=== PATIENT | male | born 1960 | race African-American/Black ===

== ENCOUNTER 2016-08-06 11:20 | Inpatient (IN) | payer OTHER ==
[2016-08-06 11:48] VITALS: BMI 24.3
--- NOTE | 2016-08-06 14:14 | HP ---
CIWA Score - CIWA Score Nausea/Vomitin Muscle Tremors: 3 Anxiety: 4-Mod. Anxious/Guarded Agitation: 3 Paroxysmal Sweats: 3 Orientation: 0-Oriented Tacttile Disturbances: 2-Mild Itch/Numbness/Burn Auditory Disturbances: 2-Mild Harshness/Frighten Visual Disturbances: 3-Moderate Sensitivity Headache: 2-Mild CIWA-Ar Total Score: 25 Admission ROS BHS - HPI Chief Complaint: "I started drinking and can't stop.' Pt. is here to Detox from alcohol. Allergies/Adverse Reactions: Allergies Allergy/AdvReac Type Severity Reaction Status Date / Time No Known Allergies Allergy Verified 08/06/16 14:05 History of Present Illness: Pt. is a 55 YO male here to Detox from alcohol. Pt. has had a previous detox admission at [facility] many years ago. Exam Limitations: No Limitations - Ebola screening Have you traveled outside of the country in the last 21 days: No Have you had contact with anyone from an Ebola affected area: No Have you been sick,other than usual withdrawal symptoms: No Do you have a fever: No - Review of Systems Constitutional: Chills, Diaphoresis, Fever, Loss of Appetite, Malaise, Night Sweats, Changes in sleep EENT: reports: Blurred Vision, Eye Pain (History of Glaucoma.), Tearing, Nose Congestion Respiratory: reports: SOB with Exertion (Occasional.), Productive cough ( Occasional.) Cardiac: reports: Palpitations GI: reports: Diarrhea, Nausea, Poor Appetite, Indigestion, Abdominal cramping : reports: No Symptoms Reported Musculoskeletal: reports: Back Pain, Joint Pain, Joint Stiffness Integumentary: reports: No Symptoms Reported Neuro: reports: Headache, Numbness (Big Toes of bilateral Feet (uncertain as to reason why). Fingertips of Right Hand (due to elbow injury).), Tingling (Big Toes of bilateral Feet (uncertain as to reason why). Fingertips of Right Hand ( due to elbow injury).), Tremors, Ataxia (Occasional, None current.) Endocrine: reports: No Symptoms Reported Hematology: reports: No Symptoms Reported Psychiatric: reports: Judgement Intact, Mood/Affect Appropiate, Orientated x3, Anxious, Depressed (On meds.) Other Systems: Reviewed and Negative Patient History - Patient Medical History Hx Anemia: No Hx Asthma: Yes (Has not been symptomatic for approx. 2 years. Previously used Albuterol Inh) Hx Chronic Obstructive Pulmonary Disease (COPD): No Hx Cancer: No Hx Cardiac Disorders: No (Murmur.) Hx Congestive Heart Failure: No Hx Hypertension: No Hx Hypercholesterolemia: No Hx Pacemaker: No HX Cerebrovascular Accident: No Hx Seizures: No Hx Dementia: No Hx Diabetes: No Hx Gastrointestinal Disorders: No (GERD, IBS.) Hx Liver Disease: No Hx Genitourinary Disorders: No Hx Sexually Transmitted Disorders: No Hx Renal Disease (ESRD): No Hx Thyroid Disease: No Hx Human Immunodeficiency Virus (HIV): No (Last Tested: 11/2015: NEGATIVE.) Hx Hepatitis C: No (Last Tested: 11/2015: NEGATIVE.) Hx Depression: Yes (On meds.) Hx Suicide Attempt: Yes (PATIENT DENIES CURRENT SI / HI.) Hx Bipolar Disorder: Yes (On meds.) Hx Schizophrenia: No - Patient Surgical History Past Surgical History: No Hx Neurologic Surgery: No Hx Cataract Extraction: No Hx Cardiac Surgery: No Hx Lung Surgery: No Hx Breast Surgery: Yes (Benign Tumor removal, age 12.) Hx Breast Biopsy: No Hx Abdominal Surgery: Yes (Inguinal Hernai repair, age 6.) Hx Appendectomy: No Hx Cholecystectomy: No Hx Genitourinary Surgery: No Hx Orthopedic Surgery: Yes (Ulnar Decompression: 2016) Anesthesia Reaction: No - PPD History Previous Implant?: Yes Documented Results: Negative w/o proof Implanted On Prior [facility] Admission?: No PPD to be Administered?: Yes - Reproductive History Patient is a Female of Child Bearing Age (11 -55 yrs old): No (PATIENT IS MALE.) - Smoking Cessation Smoking history: Current every day smoker Aproximately how many cigarettes per day: 5 Cigars Per Day: 0 Hx Chewing Tobacco Use: No Initiated information on smoking cessation: Yes 'Breaking Loose' booklet given: 08/06/16 (GIVEN ON UNIT.) - Substance & Tx. History Hx Alcohol Use: Yes Hx Substance Use: Yes Substance Use Type: Alcohol, Cocaine Hx Substance Use Treatment: Yes (Previous Detox admission at [facility], many years ago.) - Substances Abused Alcohol Route: Oral Frequency: Daily Amount used: fortunato(1/2 pint) Age of first use: 8 Date of Last Use: 08/05/16 Cocaine Route: Smoking Frequency: Daily Amount used: $300-400 Age of first use: 25 Date of Last Use: 08/05/16 Family Disease History - Family Disease History Family Disease History: Diabetes: Father (Alcohol, .), Brother ( Substance Abuse, .), Heart Disease: Daughter (Murmur.), Other: Grandparent (Alcohol.), Father, Mother (Alcohol, Kidney disorder.), Sister ( Thyroid disorder.) Admission Physical Exam [facility] - Vital Signs Vital Signs: Vital Signs - 24 hr 08/06/16 11:46 Temperature 97.3 F L Pulse Rate 73 Respiratory 20 Rate Blood Pressure 100/68 - Physical General Appearance: Yes: No Apparent Distress, Tremorous, Anxious HEENTM: Yes: Hearing grossly Normal, Normocephalic, Normal Voice, FRANNY, Pharynx Normal Respiratory: Yes: Chest Non-Tender, Lungs Clear, No Respiratory Distress Neck: Yes: No masses,lesions,Nodules, Supple, Trachea in good position Breast: Yes: Breast Exam Deferred Cardiology: Yes: Regular Rhythm, Regular Rate, S1, S2, Murmur Abdominal: Yes: Normal Bowel Sounds, Flat, Soft Genitourinary: Yes: Within Normal Limits Back: Yes: Decreased Range of Motion Musculoskeletal: Yes: Gait Steady, Back pain, Joint Stiffness Extremities: Yes: Tremors Neurological: Yes: Fully Oriented, Alert, Normal Mood/Affect, Normal Response Integumentary: Yes: Normal Color, Dry, Warm Lymphatic: Yes: Within Normal Limits - Diagnostic (1) Alcohol dependence with uncomplicated withdrawal Current Visit: Yes Status: Acute (2) Cocaine dependence, uncomplicated Current Visit: Yes Status: Acute (3) Nicotine dependence Current Visit: Yes Status: Chronic Qualifiers: Nicotine product type: cigarettes Substance use status: uncomplicated Qualified Code(s): F17.210 - Nicotine dependence, cigarettes, uncomplicated (4) Glaucoma Current Visit: Yes Status: Chronic Qualifiers: Glaucoma type: unspecified type Laterality: bilateral Qualified Code(s): H40.9 - Unspecified glaucoma (5) GERD (gastroesophageal reflux disease) Current Visit: Yes Status: Chronic Qualifiers: Esophagitis presence: without esophagitis Qualified Code(s): K21.9 - Gastro-esophageal reflux disease without esophagitis (6) IBS (irritable bowel syndrome) Current Visit: Yes Status: Chronic Qualifiers: Irritable bowel syndrome type: unspecified Qualified Code(s): K58.9 - Irritable bowel syndrome without diarrhea Cleared for Admission [facility] - Detox or Rehab [facility] Level of Care: Medically Managed (ADVISED PATIENT TO FOLLOW-UP WITH ACID WASHER OPERATOR / REHAB MEDICAL PROVIDER AFTER DISCHARGE FROM DETOX FOR GENERAL MEDICAL ASSESSMENT.) Detox Regimen/Protocol: Librium S Breath Alcohol Content Breath Alcohol Content: 0 Urine Drug Screen - Results Drug Screen Negative: No Urine Drug Screen Results: DOLORES-Cocaine
[2016-08-06] MEDS ORDERED: guaiFENesin/D-METHORPHAN HB 10 ML UNIT-DOSE CUPS PO PRN (14:58)
[2016-08-06] MEDS ORDERED: MAGNESIUM CITRATE 300 ML BOTTLE PO PRN (14:58)
[2016-08-06] MEDS ORDERED: chlordiazePOXIDE HCL 25 MG CAPSULE PO PRN (14:58)
[2016-08-06] MEDS ORDERED: chlordiazePOXIDE HCL 25 MG CAPSULE PO ONE (14:58)
[2016-08-06] MEDS ORDERED: MENTHOL/PHENOL 1 EACH UD MM PRN (14:58)
[2016-08-06] MEDS ORDERED: MAG HYDROX/AL HYDROX/SIMETH 30 ML UNIT-DOSE CUP PO PRN (14:58)
[2016-08-06] MEDS ORDERED: MAGNESIUM HYDROX 2400MG/30ML ORAL SUSPENSION 30 ML CUP PO PRN (14:58)
[2016-08-06] MEDS ORDERED: LOPERAMIDE HCL 2 MG CAPSULE PO PRN (14:58)
[2016-08-06] MEDS ORDERED: ACETAMINOPHEN 325 MG TABLET (FP) PO PRN (14:58)
[2016-08-06] MEDS ORDERED: NICOTINE POLACRILEX 2 MG GUM BC PRN (14:58)
[2016-08-06] MEDS ORDERED: hydrOXYzine PAMOATE 50 MG CAPSULE (FP) PO PRN (14:58)
[2016-08-06] MEDS ORDERED: P-EPHED 60MG/TRIPROLIDI 2.5MG TABLET PO PRN (14:58)
[2016-08-06] MEDS ORDERED: ALBUTEROL SO4 6.7 GM HFA INHALER IH PRN (15:07)
[2016-08-06] MEDS: NICOTINE 14 MG/24 HOURS TOPICAL PATCH TD SCH (15:54)
[2016-08-06] MEDS: chlordiazePOXIDE HCL 25 MG CAPSULE PO SCH ×2 (17:55→22:49)
[2016-08-06 19:25] LABS: URINE APPEARANCE CLEAR; URINE BILIRUBIN NEGATIVE (NEGATIVE); URINE BLOOD NEGATIVE (NEGATIVE); URINE COLOR YELLOW; URINE GLUCOSE (UA) NEGATIVE (NEGATIVE); URINE KETONE TRACE (NEGATIVE); URINE LEUK ESTERASE NEGATIVE (NEGATIVE); URINE NITRITE NEGATIVE (NEGATIVE); URINE PROTEIN NEGATIVE (NEGATIVE); URINE UROBILINOGEN NEGATIVE E.U./dl (0.2-1.0)
[2016-08-06] MEDS: THIAMINE HCL 100 MG TABLET (FP) PO SCH (22:49)
[2016-08-06] MEDS: BRIMONIDINE TARTRATE 0.2% OPHTHALMIC 5 ML BOTTLE OU SCH (22:50)
[2016-08-06] MEDS: LATANOPROST 0.005% OPHTH SOLN 2.5ML BOTTLE OU SCH (22:50)
[2016-08-06] MEDS: diphenhydrAMINE HCL 50 MG CAPSULE PO PRN (22:52)
[2016-08-06] MEDS: IBUPROFEN 400 MG TABLET (FP) PO PRN (22:52)
[2016-08-07] MEDS: chlordiazePOXIDE HCL 25 MG CAPSULE PO SCH ×4 (06:22→23:01)
[2016-08-07] MEDS ORDERED: TAMSULOSIN HCL 0.4 MG CAP.ER.24H (FP) PO SCH (08:30)
[2016-08-07 09:41] LABS: MCH 30.1 pg (25.7-33.7); MEAN CELL VOLUME 91.3 fl (80-96); PLATELET COUNT 129 K/MM3 (134-434); RDW 14.6 % (11.9-15.9); WHITE BLOOD COUNT 4.5 K/mm3 (4.0-10.0)
[2016-08-07 10:03] LABS: ALBUMIN 3.2 g/dl (3.4-5.0); ALK PHOS 60 U/L (45-117); ANION GAP 9 (8-16); BILIRUBIN,TOTAL 0.3 mg/dL (0.2-1.0); CALCIUM 8.3 mg/dL (8.5-10.1); CO2 27 mmol/L (21-32); CREATININE 0.9 mg/dL (0.7-1.3); GLUCOSE,RANDOM 101 mg/dL (74-106); SGOT/AST 13 U/L (15-37); SGPT/ALT 19 U/L (12-78); TOT PROT 6.2 g/dl (6.4-8.2)
[2016-08-07 10:11] LABS: HIV 1 & 2 AB NEGATIVE; HIV 1 AGp24 NEGATIVE
[2016-08-07] MEDS: PANTOPRAZOLE 40 MG TABLET (FP) PO SCH (11:15)
[2016-08-07] MEDS: PRENATAL VITAMINS W/ FOLIC ACID TABLET (FP) PO SCH (11:16)
[2016-08-07] MEDS: BRIMONIDINE TARTRATE 0.2% OPHTHALMIC 5 ML BOTTLE OU SCH (11:16)
[2016-08-07] MEDS: NICOTINE 14 MG/24 HOURS TOPICAL PATCH TD SCH (11:27)
--- NOTE | 2016-08-07 11:35 | PN ---
S CIWA - CIWA Score Nausea/Vomitin Muscle Tremors: 3 Anxiety: 4-Mod. Anxious/Guarded Agitation: 4-Moderately Restless Paroxysmal Sweats: 3 Orientation: 0-Oriented Tacttile Disturbances: 2-Mild Itch/Numbness/Burn Auditory Disturbances: 0-None Visual Disturbances: 2-Mild Sensitivity Headache: 1-Very Mild CIWA-Ar Total Score: 22 BHS Progress Note (SOAP) Subjective: sweats, shakes, achy, wants eye drops changed Objective: 08/07/16 11:31 Vital Signs Temperature 97.1 F L 08/07/16 11:18 Pulse Rate 63 08/07/16 11:18 Respiratory Rate 16 08/07/16 11:18 Blood Pressure 111/80 08/07/16 11:18 O2 Sat by Pulse Oximetry (%) Laboratory Tests 08/06/16 08/07/16 08/07/16 Unknown 07:00 07:00 WBC 4.5 RBC 4.31 Hgb 13.0 Hct 39.4 MCV 91.3 MCHC 33.0 RDW 14.6 Plt Count 129 L MPV 10.0 Sodium Potassium Chloride Carbon Dioxide Anion Gap BUN Creatinine Creat Clearance w eGFR Random Glucose Hemoglobin A1c % Calcium Total Bilirubin AST ALT Alkaline Phosphatase Total Protein Albumin Urine Color Yellow Urine Appearance Clear Urine pH 6.0 Ur Specific [place] 1.026 Urine Protein Negative Urine Glucose (UA) Negative Urine Ketones Trace H Urine Blood Negative Urine Nitrite Negative Urine Bilirubin Negative Urine Urobilinogen Negative Ur Leukocyte Esterase Negative RPR Titer HIV 1&2 Antibody Screen Negative HIV P24 Antigen Negative 08/07/16 08/07/16 08/07/16 07:00 07:00 07:00 WBC RBC Hgb Hct MCV MCHC RDW Plt Count MPV Sodium 139 Potassium 3.9 Chloride 103 Carbon Dioxide 27 Anion Gap 9 BUN 18 Creatinine 0.9 Creat Clearance w eGFR > 60 Random Glucose 101 Hemoglobin A1c % 6.0 Calcium 8.3 L Total Bilirubin 0.3 AST 13 L ALT 19 Alkaline Phosphatase 60 Total Protein 6.2 L Albumin 3.2 L Urine Color Urine Appearance Urine pH Ur Specific [place] Urine Protein Urine Glucose (UA) Urine Ketones Urine Blood Urine Nitrite Urine Bilirubin Urine Urobilinogen Ur Leukocyte Esterase RPR Titer Nonreactive HIV 1&2 Antibody Screen HIV P24 Antigen 08/07/16 11:46 pt irritable , ambulating , demanding eye drops Assessment: 08/07/16 11:46 withdrawal sx's glaucoma bph Plan: cont detox increase fluids alphagan eye drops bid prn flomax 0,4 at hs
[2016-08-07 12:41] LABS: SICKLE CELL SCREEN NEGATIVE (NEGATIVE)
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
[2016-08-07] MEDS ORDERED: DIVALPROEX SODIUM 250 MG TABLET E.C. (FP) PO SCH (22:00)
[2016-08-07] MEDS: THIAMINE HCL 100 MG TABLET (FP) PO SCH (23:01)
[2016-08-07] MEDS: TAMSULOSIN HCL 0.4 MG CAP.ER.24H (FP) PO SCH (23:01)
[2016-08-07] MEDS: DIVALPROEX SODIUM 500 MG TABLET E.C. PO SCH (23:01)
[2016-08-07] MEDS: QUEtiapine FUMARATE 100 MG TABLET (FP) PO SCH (23:01)
[2016-08-07] MEDS: BRIMONIDINE TARTRATE 0.2% OPHTHALMIC 5 ML BOTTLE OU PRN (23:02)
[2016-08-07] MEDS: LATANOPROST 0.005% OPHTH SOLN 2.5ML BOTTLE OU SCH (23:02)
[2016-08-07] MEDS: IBUPROFEN 400 MG TABLET (FP) PO PRN (23:03)
[2016-08-08] MEDS: chlordiazePOXIDE HCL 25 MG CAPSULE PO SCH ×2 (05:24→10:39)
[2016-08-08] MEDS: BRIMONIDINE TARTRATE 0.2% OPHTHALMIC 5 ML BOTTLE OU PRN (05:27)
[2016-08-08] MEDS: PANTOPRAZOLE 40 MG TABLET (FP) PO SCH (10:39)
[2016-08-08] MEDS: NICOTINE 14 MG/24 HOURS TOPICAL PATCH TD SCH (10:39)
[2016-08-08] MEDS: PRENATAL VITAMINS W/ FOLIC ACID TABLET (FP) PO SCH (10:39)
[2016-08-08] MEDS: DIVALPROEX SODIUM 500 MG TABLET E.C. PO SCH ×2 (10:39→22:06)
--- NOTE | 2016-08-08 11:30 | PN ---
S CIWA - CIWA Score Nausea/Vomitin-No Nausea/No Vomiting Muscle Tremors: 4-Moderate,w/Arms Extend Anxiety: 3 Agitation: 4-Moderately Restless Paroxysmal Sweats: 3 Orientation: 0-Oriented Tacttile Disturbances: 0-None Auditory Disturbances: 0-None Visual Disturbances: 0-None Headache: 1-Very Mild CIWA-Ar Total Score: 15 BHS Progress Note (SOAP) Subjective: irritable agitation anxiety interrupted sleep body aches Objective: 08/08/16 11:29 Vital Signs Temperature 97.2 F L 08/08/16 10:46 Pulse Rate 78 08/08/16 10:46 Respiratory Rate 18 08/08/16 10:46 Blood Pressure 101/71 08/08/16 10:46 O2 Sat by Pulse Oximetry (%) Laboratory Tests 08/06/16 08/06/16 08/07/16 07:00 Unknown 07:00 WBC RBC Hgb Hct MCV MCHC RDW Plt Count MPV Sickle Cell Screen Sodium Potassium Chloride Carbon Dioxide Anion Gap BUN Creatinine Creat Clearance w eGFR Random Glucose Hemoglobin A1c % Calcium Total Bilirubin AST ALT Alkaline Phosphatase Total Protein Albumin Urine Color Yellow Urine Appearance Clear Urine pH 6.0 Ur Specific [place] 1.026 Urine Protein Negative Urine Glucose (UA) Negative Urine Ketones Trace H Urine Blood Negative Urine Nitrite Negative Urine Bilirubin Negative Urine Urobilinogen Negative Ur Leukocyte Esterase Negative RPR Titer Hepatitis C Antibody 0.2 HIV 1&2 Antibody Screen Negative HIV P24 Antigen Negative 08/07/16 08/07/16 08/07/16 07:00 07:00 07:00 WBC 4.5 RBC 4.31 Hgb 13.0 Hct 39.4 MCV 91.3 MCHC 33.0 RDW 14.6 Plt Count 129 L MPV 10.0 Sickle Cell Screen Negative Sodium 139 Potassium 3.9 Chloride 103 Carbon Dioxide 27 Anion Gap 9 BUN 18 Creatinine 0.9 Creat Clearance w eGFR > 60 Random Glucose 101 Hemoglobin A1c % Calcium 8.3 L Total Bilirubin 0.3 AST 13 L ALT 19 Alkaline Phosphatase 60 Total Protein 6.2 L Albumin 3.2 L Urine Color Urine Appearance Urine pH Ur Specific [place] Urine Protein Urine Glucose (UA) Urine Ketones Urine Blood Urine Nitrite Urine Bilirubin Urine Urobilinogen Ur Leukocyte Esterase RPR Titer Nonreactive Hepatitis C Antibody HIV 1&2 Antibody Screen HIV P24 Antigen 08/07/16 07:00 WBC RBC Hgb Hct MCV MCHC RDW Plt Count MPV Sickle Cell Screen Sodium Potassium Chloride Carbon Dioxide Anion Gap BUN Creatinine Creat Clearance w eGFR Random Glucose Hemoglobin A1c % 6.0 Calcium Total Bilirubin AST ALT Alkaline Phosphatase Total Protein Albumin Urine Color Urine Appearance Urine pH Ur Specific [place] Urine Protein Urine Glucose (UA) Urine Ketones Urine Blood Urine Nitrite Urine Bilirubin Urine Urobilinogen Ur Leukocyte Esterase RPR Titer Hepatitis C Antibody HIV 1&2 Antibody Screen HIV P24 Antigen awake/alert ambulating no acute distress Assessment: 08/08/16 11:29 withdrawal sx Plan: continue detox increase fluids
[2016-08-08] MEDS: IBUPROFEN 400 MG TABLET (FP) PO PRN (13:22)
[2016-08-08] MEDS: chlordiazePOXIDE 5 MG CAPSULE PO SCH ×2 (17:13→22:06)
[2016-08-08] MEDS: TAMSULOSIN HCL 0.4 MG CAP.ER.24H (FP) PO SCH (22:06)
[2016-08-08] MEDS: THIAMINE HCL 100 MG TABLET (FP) PO SCH (22:06)
[2016-08-08] MEDS: QUEtiapine FUMARATE 100 MG TABLET (FP) PO SCH (22:06)
[2016-08-08] MEDS: diphenhydrAMINE HCL 50 MG CAPSULE PO PRN (22:07)
--- NOTE | 2016-08-08 22:52 | EKG ---
Test Reason : Blood Pressure : / mmHG Vent. Rate : 073 BPM Atrial Rate : 073 BPM P-R Int : 160 ms QRS Dur : 102 ms QT Int : 440 ms P-R-T Axes : 075 001 -22 degrees QTc Int : 484 ms NORMAL SINUS RHYTHM NONSPECIFIC T WAVE ABNORMALITY PROLONGED QT ABNORMAL ECG NO PREVIOUS ECGS AVAILABLE Confirmed by SEKOU GROVER, CLARITZA ([id number]) on 08/08/2016 10:51:41 PM Referred By: Confirmed By:CLARITZA SAPP MD
[2016-08-08] MEDS: LATANOPROST 0.005% OPHTH SOLN 2.5ML BOTTLE OU SCH (22:55)
[2016-08-09] MEDS: chlordiazePOXIDE 5 MG CAPSULE PO SCH (06:12)
[2016-08-09] MEDS: IBUPROFEN 400 MG TABLET (FP) PO PRN (06:16)
[2016-08-09] MEDS: BRIMONIDINE TARTRATE 0.2% OPHTHALMIC 5 ML BOTTLE OU PRN (06:24)
--- NOTE | 2016-08-09 09:40 | PN ---
[facility] Progress Note Note: pt became irrate yelling out loud disrespecting staff stating "I dont give a fuck about anything." security called to have pt escorted off the unit. administrative discharge
[2016-08-09 09:51] VITALS: BP 125/76; PULSE 92; TEMP 97.3
--- NOTE | 2016-08-09 09:56 | DS ---
[facility] Detox Discharge Summary Admission Date: 08/06/16 Discharge Date: 08/09/16 - History Present History: Alcohol Dependence, Cocaine Dependence - Physical Exam Results Vital Signs: Vital Signs Temperature 97.3 F L 08/09/16 09:50 Pulse Rate 92 H 08/09/16 09:50 Respiratory Rate 18 08/09/16 09:50 Blood Pressure 125/76 08/09/16 09:50 O2 Sat by Pulse Oximetry (%) - Treatment Hospital Course: Detox Protocol Followed, Detoxed Safely, Responded well, Discharged Condition Good, Rehab Referral Accepted - Medication Discharge Medications: Ambulatory Orders Brimonidine Tartrate [Alphagan 0.2% -] 1 drop OU BID 08/06/16 Divalproex [Depakote -] 1,000 mg PO BID 08/06/16 Latanoprost 0.005% Eye Drops [Xalatan 0.005% Eye Drops -] 1 drop OU HS 08/06/16 Multivitamins [Tab-A-Vit -] 1 tab PO DAILY 08/06/16 Quetiapine Fumarate [Seroquel] 100 mg PO HS 08/06/16 Tamsulosin HCl [Flomax] 0.4 mg PO DAILY 08/06/16 - Diagnosis (1) Alcohol dependence with uncomplicated withdrawal Current Visit: Yes Status: Chronic (2) Cocaine dependence, uncomplicated Current Visit: Yes Status: Chronic (3) Insomnia Current Visit: Yes Status: Acute (4) Nicotine dependence Current Visit: Yes Status: Chronic Qualifiers: Nicotine product type: cigarettes Substance use status: uncomplicated Qualified Code(s): F17.210 - Nicotine dependence, cigarettes, uncomplicated (5) Substance induced mood disorder Current Visit: Yes Status: Acute (6) GERD (gastroesophageal reflux disease) Current Visit: Yes Status: Chronic Qualifiers: Esophagitis presence: without esophagitis Qualified Code(s): K21.9 - Gastro-esophageal reflux disease without esophagitis (7) Glaucoma Current Visit: Yes Status: Chronic Qualifiers: Glaucoma type: unspecified type Laterality: bilateral Qualified Code(s): H40.9 - Unspecified glaucoma (8) IBS (irritable bowel syndrome) Current Visit: Yes Status: Chronic Qualifiers: Irritable bowel syndrome type: unspecified Qualified Code(s): K58.9 - Irritable bowel syndrome without diarrhea (9) Post traumatic stress disorder (PTSD) Current Visit: Yes Status: Chronic (10) Schizoaffective disorder Current Visit: Yes Status: Chronic - AMA Did Patient Leave Against Medical Advice: No
[2016-08-09] MEDS ORDERED: chlordiazePOXIDE HCL 10 MG CAPSULE PO SCH (17:00)
== END 2016-08-09 09:50 | disposition home or self-care (01) | DRG 897 ==
LOC: YASAS 11:20 → Y6N 12:35
PROVIDERS: ADMIT Internal Medicine; ATTEND Internal Medicine Addiction Medicine
PROC: HZ2ZZZZ Detoxification Services for Substance Abuse Treatment (ICD-10-PCS; principal; 2016-08-06)
DX: F10.230 Alcohol dependence with withdrawal, uncomplicated (principal); F14.20 Cocaine dependence, uncomplicated; F17.210 Nicotine dependence, cigarettes, uncomplicated; F19.24 Other psychoactive substance dependence with psychoactive substance-induced mood disorder; F43.10 Post-traumatic stress disorder, unspecified; F25.9 Schizoaffective disorder, unspecified; J45.909 Unspecified asthma, uncomplicated; G47.00 Insomnia, unspecified; K21.9 Gastro-esophageal reflux disease without esophagitis; H40.9 Unspecified glaucoma; K58.9 Irritable bowel syndrome, unspecified; N40.0 Benign prostatic hyperplasia without lower urinary tract symptoms; Z91.5 Personal history of self-harm
CPT/HCPCS: 36415; 80053; 80164; 81003; 83036; 85027; 85660; 86593; 87389; 93005; 93010

== ENCOUNTER 2016-11-17 10:06 | Inpatient (IN) | payer OTHER ==
[2016-11-17 12:09] VITALS: BMI 24.3
--- NOTE | 2016-11-17 12:46 | HP ---
CIWA Score - CIWA Score Nausea/Vomitin-Mild Nausea/No Vomiting Muscle Tremors: 4-Moderate,w/Arms Extend Anxiety: 3 Agitation: 4-Moderately Restless Paroxysmal Sweats: 3 Orientation: 0-Oriented Tacttile Disturbances: 0-None Auditory Disturbances: 0-None Visual Disturbances: 0-None Headache: 1-Very Mild CIWA-Ar Total Score: 16 Admission ROS BHS - HPI Chief Complaint: I am in a better place now and ready for detox and thinking about rehab for more treatment. Allergies/Adverse Reactions: Allergies Allergy/AdvReac Type Severity Reaction Status Date / Time No Known Allergies Allergy Verified 11/17/16 12:21 History of Present Illness: Pt is a 55yr old male with a history alcohol and crack/cocaine dependence seeking detox for treatment. Exam Limitations: No Limitations - Ebola screening Have you traveled outside of the country in the last 21 days: No Have you had contact with anyone from an Ebola affected area: No Have you been sick,other than usual withdrawal symptoms: No Do you have a fever: No - Review of Systems Constitutional: Chills, Loss of Appetite, Night Sweats, Changes in sleep EENT: reports: No Symptoms Reported, Tearing Respiratory: reports: No Symptoms reported, Cough Cardiac: reports: Lightheadedness GI: reports: Diarrhea, Nausea, Poor Appetite, Poor Fluid Intake : reports: No Symptoms Reported, Burning (light burning when voiding but not bad. H/o BPH), Urgency Musculoskeletal: reports: Back Pain, Joint Pain Integumentary: reports: Flushing, Sweating Neuro: reports: Seizure (alcohol r/t seizure last seizure was a month ago as per pt), Tingling, Tremors Endocrine: reports: Excessive Sweating, Flushing Hematology: reports: No Symptoms Reported Psychiatric: reports: Judgement Intact, Mood/Affect Appropiate, Orientated x3, Agitated, Anxious Other Systems: Reviewed and Negative Patient History - Patient Medical History Hx Anemia: No Hx Asthma: Yes Hx Chronic Obstructive Pulmonary Disease (COPD): No Hx Cancer: No Hx Cardiac Disorders: No Hx Congestive Heart Failure: No Hx Hypertension: No Hx Hypercholesterolemia: No Hx Pacemaker: No HX Cerebrovascular Accident: No Hx Seizures: No Hx Dementia: No Hx Diabetes: No Hx Gastrointestinal Disorders: No (GERD, IBS.) Hx Liver Disease: No Hx Genitourinary Disorders: No Hx Sexually Transmitted Disorders: No Hx Renal Disease (ESRD): No Hx Thyroid Disease: No Hx Human Immunodeficiency Virus (HIV): No (negative) Hx Hepatitis C: No (negative) Hx Depression: Yes (On meds.) Hx Suicide Attempt: Yes (tried to OD with pill 06/2015; denies any S/H ideation today) Hx Bipolar Disorder: Yes (On meds.) Hx Schizophrenia: No - Patient Surgical History Past Surgical History: No Hx Neurologic Surgery: No Hx Cataract Extraction: No Hx Cardiac Surgery: No Hx Lung Surgery: No Hx Breast Surgery: Yes (Benign Tumor removal, age 12.) Hx Breast Biopsy: No Hx Abdominal Surgery: Yes (Inguinal Hernai repair, age 6.) Hx Appendectomy: No Hx Cholecystectomy: No Hx Genitourinary Surgery: No Hx Orthopedic Surgery: Yes (Ulnar Decompression: 2015) Anesthesia Reaction: No - PPD History Previous Implant?: Yes Date: 08/08/16 PPD to be Administered?: No - Reproductive History Patient is a Female of Child Bearing Age (11 -55 yrs old): No - Smoking Cessation Smoking history: Current every day smoker Aproximately how many cigarettes per day: 5 Cigars Per Day: 0 Hx Chewing Tobacco Use: No Initiated information on smoking cessation: Yes 'Breaking Loose' booklet given: 11/17/16 - Substance & Tx. History Hx Alcohol Use: Yes Hx Substance Use: No Substance Use Type: Alcohol Hx Substance Use Treatment: Yes ([facility] for detox &psych 10/2016) - Substances Abused Alcohol-cognac/beer Route: Oral Frequency: Daily Amount used: 2 pts./1-6 pk. Age of first use: 8 Date of Last Use: 11/15/16 Family Disease History - Family Disease History Family Disease History: Diabetes: Father, Brother (Substance Abuse, .), Heart Disease: Daughter (Murmur.), Other: Grandparent (Alcohol.), Father, Mother (Alcohol, Kidney disorder.), Sister (Thyroid disorder.) Admission Physical Exam S - Vital Signs Vital Signs: Vital Signs - 24 hr 11/17/16 12:07 Temperature 95.4 F L Pulse Rate 56 L Respiratory 18 Rate Blood Pressure 131/87 - Physical General Appearance: Yes: Appropriately Dressed, Moderate Distress, Thin, Tremorous, Irritable, Sweating, Anxious HEENTM: Yes: Normal Voice, Nasal Congestion Respiratory: Yes: Lungs Clear, Normal Breath Sounds, No Respiratory Distress Neck: Yes: No masses,lesions,Nodules Breast: Yes: Within Normal Limits Cardiology: Yes: Regular Rhythm, Regular Rate, S1, S2 Abdominal: Yes: Non Tender, Soft Genitourinary: Yes: Within Normal Limits Back: Yes: Normal Inspection Musculoskeletal: Yes: Gait Steady, Back pain Extremities: Yes: Normal Capillary Refill, Non-Tender, Tremors, Swelling (mild edema to both ankle; leg elevation encouraged.) Neurological: Yes: Fully Oriented, Alert, Normal Response Integumentary: Yes: Normal Color Lymphatic: Yes: Within Normal Limits - Diagnostic (1) Alcohol dependence with uncomplicated withdrawal Current Visit: Yes Status: Chronic (2) Cocaine dependence, uncomplicated Current Visit: Yes Status: Chronic (3) GERD (gastroesophageal reflux disease) Current Visit: Yes Status: Chronic Qualifiers: Esophagitis presence: without esophagitis Qualified Code(s): K21.9 - Gastro-esophageal reflux disease without esophagitis (4) Glaucoma Current Visit: Yes Status: Chronic Qualifiers: Glaucoma type: open-angle Open angle glaucoma type: primary Laterality: bilateral Glaucoma stage: stage unspecified Qualified Code(s): H40.1130 - Primary open-angle glaucoma, bilateral, stage unspecified (5) IBS (irritable bowel syndrome) Current Visit: Yes Status: Chronic Qualifiers: Irritable bowel syndrome type: unspecified Qualified Code(s): K58.9 - Irritable bowel syndrome without diarrhea (6) Nicotine dependence Current Visit: Yes Status: Chronic Qualifiers: Nicotine product type: cigarettes Substance use status: uncomplicated Qualified Code(s): F17.210 - Nicotine dependence, cigarettes, uncomplicated Cleared for Admission [facility] - Detox or Rehab [facility] Level of Care: Medically Managed Detox Regimen/Protocol: Librium [facility] Breath Alcohol Content Breath Alcohol Content: 0 Urine Drug Screen - Results Drug Screen Negative: No Urine Drug Screen Results: DOLORES-Cocaine
[2016-11-17] MEDS ORDERED: guaiFENesin/D-METHORPHAN HB 10 ML UNIT-DOSE CUPS PO PRN (13:08)
[2016-11-17] MEDS ORDERED: diphenhydrAMINE HCL 50 MG CAPSULE PO PRN (13:08)
[2016-11-17] MEDS ORDERED: ACETAMINOPHEN 325 MG TABLET (FP) PO PRN (13:08)
[2016-11-17] MEDS ORDERED: LOPERAMIDE HCL 2 MG CAPSULE PO PRN (13:08)
[2016-11-17] MEDS ORDERED: MAGNESIUM CITRATE 300 ML BOTTLE PO PRN (13:08)
[2016-11-17] MEDS ORDERED: P-EPHED 60MG/TRIPROLIDI 2.5MG TABLET PO PRN (13:08)
[2016-11-17] MEDS ORDERED: NICOTINE POLACRILEX 4 MG GUM BC PRN (13:08)
[2016-11-17] MEDS ORDERED: MAG HYDROX/AL HYDROX/SIMETH 30 ML UNIT-DOSE CUP PO PRN (13:08)
[2016-11-17] MEDS ORDERED: chlordiazePOXIDE HCL 25 MG CAPSULE PO PRN (13:08)
[2016-11-17] MEDS ORDERED: hydrOXYzine PAMOATE 50 MG CAPSULE (FP) PO PRN (13:08)
[2016-11-17] MEDS ORDERED: MENTHOL/PHENOL 1 EACH UD MM PRN (13:08)
[2016-11-17] MEDS ORDERED: MAGNESIUM HYDROX 2400MG/30ML ORAL SUSPENSION 30 ML CUP PO PRN (13:08)
[2016-11-17] MEDS ORDERED: chlordiazePOXIDE HCL 25 MG CAPSULE PO ONE (14:00)
[2016-11-17] MEDS: LIDOCAINE 5% TOPICAL PATCH TP SCH (14:08)
[2016-11-17 16:42] LABS: URINE APPEARANCE CLEAR; URINE BILIRUBIN NEGATIVE (NEGATIVE); URINE BLOOD NEGATIVE (NEGATIVE); URINE COLOR YELLOW; URINE GLUCOSE (UA) NEGATIVE (NEGATIVE); URINE KETONE TRACE (NEGATIVE); URINE LEUK ESTERASE NEGATIVE (NEGATIVE); URINE NITRITE NEGATIVE (NEGATIVE); URINE PROTEIN NEGATIVE (NEGATIVE)
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
[2016-11-17] MEDS: chlordiazePOXIDE HCL 25 MG CAPSULE PO SCH ×2 (17:29→22:42)
[2016-11-17] MEDS: IBUPROFEN 600 MG TABLET (FP) PO PRN (20:25)
[2016-11-17] MEDS: METHYL SALICYLATE/MENTHOL OINT 30 GM TUBE TP SCH (22:42)
[2016-11-17] MEDS: THIAMINE HCL 100 MG TABLET (FP) PO SCH (22:42)
[2016-11-17] MEDS: DIVALPROEX SODIUM 500 MG TABLET E.C. PO SCH (22:42)
[2016-11-17] MEDS: QUEtiapine FUMARATE 100 MG TABLET (FP) PO SCH (22:42)
[2016-11-17] MEDS: BRIMONIDINE TARTRATE OU SCH (22:43)
[2016-11-17] MEDS: PATIENT'S OWN MEDICATION (NON-FORMULARY) (Latanoprost 0.005% Eye Drops [Xalatan 0.005% Eye OU SCH (22:43)
[2016-11-17] MEDS: LIDOCAINE PATCH REMOVAL MC SCH (22:53)
[2016-11-18] MEDS: chlordiazePOXIDE HCL 25 MG CAPSULE PO SCH ×4 (07:31→22:38)
--- NOTE | 2016-11-18 08:32 | EKG ---
Test Reason : Blood Pressure : / mmHG Vent. Rate : 054 BPM Atrial Rate : 054 BPM P-R Int : 158 ms QRS Dur : 090 ms QT Int : 456 ms P-R-T Axes : 051 015 015 degrees QTc Int : 432 ms SINUS BRADYCARDIA OTHERWISE NORMAL ECG WHEN COMPARED WITH ECG OF 06-AUG-2016 14:40, NONSPECIFIC T WAVE ABNORMALITY NO LONGER EVIDENT IN ANTEROLATERAL LEADS QT HAS SHORTENED Confirmed by ALVIN GROVER, MOUNA ([id number]) on 11/18/2016 8:31:36 AM Referred By: Confirmed By:MOUNA ESQUIVEL MD
[2016-11-18] MEDS: BRIMONIDINE TARTRATE OU SCH ×3 (08:37→22:40)
--- NOTE | 2016-11-18 10:15 | PN ---
S CIWA - CIWA Score Nausea/Vomitin Muscle Tremors: 2 Anxiety: 3 Agitation: 2 Paroxysmal Sweats: 2 Orientation: 0-Oriented Tacttile Disturbances: 1-Very Mild Itch/Numbness Auditory Disturbances: 1-Very Mild Visual Disturbances: 0-None Headache: 1-Very Mild CIWA-Ar Total Score: 14 S Progress Note (SOAP) Subjective: Mild sweats and shakes, anxiety and sleeplessness Objective: 11/18/16 10:14 Vital Signs - 8 hr 11/18/16 11/18/16 11/18/16 03:26 06:00 09:29 Temperature 97.3 F L 95.2 F L Pulse Rate 56 L 65 Respiratory 18 18 18 Rate Blood Pressure 123/72 123/85 Laboratory Last Values Urine Color Yellow 11/17/16 15:00 Urine Appearance Clear 11/17/16 15:00 Urine pH 5.0 (5.0-8.0) 11/17/16 15:00 Ur Specific [place] 1.025 (1.005-1.025) 11/17/16 15:00 Urine Protein Negative (NEGATIVE) 11/17/16 15:00 Urine Glucose (UA) Negative (NEGATIVE) 11/17/16 15:00 Urine Ketones Trace (NEGATIVE) H 11/17/16 15:00 Urine Blood Negative (NEGATIVE) 11/17/16 15:00 Urine Nitrite Negative (NEGATIVE) 11/17/16 15:00 Urine Bilirubin Negative (NEGATIVE) 11/17/16 15:00 Urine Urobilinogen 2.0 mg/dL (0.2-1.0) 11/17/16 15:00 Ur Leukocyte Esterase Negative (NEGATIVE) 11/17/16 15:00 UA noted, labs pending Assessment: 11/18/16 10:15 withdrawal sx Plan: continue detox
[2016-11-18 10:23] LABS: MCH 30.3 pg (25.7-33.7); MEAN CELL VOLUME 91.7 fl (80-96); MEAN PLT VOLUME 10.4 fl (7.5-11.1); PLATELET COUNT 124 K/MM3 (134-434); RDW 14.5 % (11.9-15.9); WHITE BLOOD COUNT 3.7 K/mm3 (4.0-10.0)
[2016-11-18 10:43] LABS: ALBUMIN 3.1 g/dl (3.4-5.0); ALK PHOS 54 U/L (45-117); ANION GAP 7 (8-16); BILIRUBIN,TOTAL 0.8 mg/dL (0.2-1.0); CALCIUM 8.6 mg/dL (8.5-10.1); CO2 27 mmol/L (21-32); CREATININE 0.7 mg/dL (0.7-1.3); GLUCOSE,RANDOM 95 mg/dL (74-106); SGOT/AST 17 U/L (15-37); SGPT/ALT 21 U/L (12-78); TOT PROT 5.8 g/dl (6.4-8.2)
[2016-11-18] MEDS: DIVALPROEX SODIUM 500 MG TABLET E.C. PO SCH ×2 (10:55→22:38)
[2016-11-18] MEDS: METHYL SALICYLATE/MENTHOL OINT 30 GM TUBE TP SCH ×2 (10:55→22:40)
[2016-11-18] MEDS: TAMSULOSIN HCL 0.4 MG CAP.ER.24H (FP) PO SCH (10:55)
[2016-11-18] MEDS: NICOTINE 21 MG/24 HOURS TOPICAL PATCH TD SCH (10:56)
[2016-11-18] MEDS: LIDOCAINE 5% TOPICAL PATCH TP SCH (10:56)
[2016-11-18] MEDS: PRENATAL VITAMINS W/ FOLIC ACID TABLET (FP) PO SCH (10:56)
[2016-11-18 12:27] LABS: HIV 1 & 2 AB NEGATIVE; HIV 1 AGp24 NEGATIVE
[2016-11-18] MEDS ORDERED: COLLOIDAL OATMEAL 1 BAR EACH TP PRN (18:00)
[2016-11-18] MEDS: THIAMINE HCL 100 MG TABLET (FP) PO SCH (22:38)
[2016-11-18] MEDS: QUEtiapine FUMARATE 100 MG TABLET (FP) PO SCH (22:38)
[2016-11-18] MEDS: PATIENT'S OWN MEDICATION (NON-FORMULARY) (Latanoprost 0.005% Eye Drops [Xalatan 0.005% Eye OU SCH (22:39)
[2016-11-18] MEDS: LIDOCAINE PATCH REMOVAL MC SCH (22:40)
[2016-11-19] MEDS: chlordiazePOXIDE HCL 25 MG CAPSULE PO SCH ×2 (06:46→10:48)
[2016-11-19] MEDS: DIVALPROEX SODIUM 500 MG TABLET E.C. PO SCH ×2 (10:48→23:04)
[2016-11-19] MEDS: PRENATAL VITAMINS W/ FOLIC ACID TABLET (FP) PO SCH (10:48)
[2016-11-19] MEDS: LIDOCAINE 5% TOPICAL PATCH TP SCH (10:48)
[2016-11-19] MEDS: TAMSULOSIN HCL 0.4 MG CAP.ER.24H (FP) PO SCH (10:49)
[2016-11-19] MEDS: BRIMONIDINE TARTRATE OU SCH (10:49)
[2016-11-19] MEDS: METHYL SALICYLATE/MENTHOL OINT 30 GM TUBE TP SCH ×2 (10:50→23:04)
[2016-11-19] MEDS: NICOTINE 21 MG/24 HOURS TOPICAL PATCH TD SCH (10:51)
[2016-11-19] MEDS ORDERED: BRIMONIDINE TARTRATE OU SCH (11:34)
--- NOTE | 2016-11-19 16:18 | PN ---
[facility] CIWA - CIWA Score Nausea/Vomitin Muscle Tremors: 4-Moderate,w/Arms Extend Anxiety: 5 Agitation: 4-Moderately Restless Paroxysmal Sweats: No Perspiration Orientation: 0-Oriented Tacttile Disturbances: 1-Very Mild Itch/Numbness Auditory Disturbances: 0-None Visual Disturbances: 0-None Headache: 0-None Present CIWA-Ar Total Score: 17 BHS Progress Note (SOAP) Subjective: Anxious, irritable, agitated, nervous; patient requesting his brimonidine eye drop to be given PRN, whenever he wants it. He later agreed to have it at 0800 and at bedtime and got very irritable and agitated with inspector automatic typewriter and RN but later calmed down and apologized for his behavior. Objective: 11/19/16 16:14 Last Vital Signs Temp Pulse Resp BP Pulse Ox 95.8 F L 86 18 125/86 11/19/16 06:30 11/19/16 10:08 11/19/16 10:08 11/19/16 10:08 Laboratory Tests 11/17/16 11/18/16 11/18/16 15:00 07:20 07:20 WBC 3.7 L RBC 4.20 Hgb 12.7 Hct 38.5 MCV 91.7 MCH 30.3 MCHC 33.0 RDW 14.5 Plt Count 124 L MPV 10.4 Sodium Potassium Chloride Carbon Dioxide Anion Gap BUN Creatinine Creat Clearance w eGFR Random Glucose Calcium Total Bilirubin AST ALT Alkaline Phosphatase Total Protein Albumin Urine Color Yellow Urine Appearance Clear Urine pH 5.0 Ur Specific [place] 1.025 Urine Protein Negative Urine Glucose (UA) Negative Urine Ketones Trace H Urine Blood Negative Urine Nitrite Negative Urine Bilirubin Negative Urine Urobilinogen 2.0 Ur Leukocyte Esterase Negative Valproic Acid RPR Titer HIV 1&2 Antibody Screen Negative HIV P24 Antigen Negative 11/18/16 11/18/16 11/18/16 07:20 07:20 07:20 WBC RBC Hgb Hct MCV MCH MCHC RDW Plt Count MPV Sodium 142 Potassium 4.1 Chloride 108 H Carbon Dioxide 27 Anion Gap 7 L BUN 14 D Creatinine 0.7 D Creat Clearance w eGFR > 60 Random Glucose 95 Calcium 8.6 Total Bilirubin 0.8 D AST 17 D ALT 21 Alkaline Phosphatase 54 Total Protein 5.8 L Albumin 3.1 L Urine Color Urine Appearance Urine pH Ur Specific [place] Urine Protein Urine Glucose (UA) Urine Ketones Urine Blood Urine Nitrite Urine Bilirubin Urine Urobilinogen Ur Leukocyte Esterase Valproic Acid 18.511 L RPR Titer Nonreactive HIV 1&2 Antibody Screen HIV P24 Antigen Labs noted Assessment: 11/19/16 16:17 Withdrawal symptoms Plan: Continue detox
[2016-11-19] MEDS: chlordiazePOXIDE 5 MG CAPSULE PO SCH ×2 (17:24→23:05)
[2016-11-19] MEDS ORDERED: BRIMONIDINE TARTRATE 0.2% OPHTHALMIC 5 ML BOTTLE OU SCH ×2 (22:00→22:19)
[2016-11-19] MEDS: THIAMINE HCL 100 MG TABLET (FP) PO SCH (23:05)
[2016-11-19] MEDS: QUEtiapine FUMARATE 100 MG TABLET (FP) PO SCH (23:05)
[2016-11-19] MEDS: LIDOCAINE PATCH REMOVAL MC SCH (23:05)
[2016-11-19] MEDS: PATIENT'S OWN MEDICATION (NON-FORMULARY) (Latanoprost 0.005% Eye Drops [Xalatan 0.005% Eye OU SCH (23:10)
[2016-11-20] MEDS: chlordiazePOXIDE 5 MG CAPSULE PO SCH ×2 (08:23→10:44)
[2016-11-20] MEDS: METHYL SALICYLATE/MENTHOL OINT 30 GM TUBE TP SCH ×2 (10:41→22:08)
[2016-11-20] MEDS: NICOTINE 21 MG/24 HOURS TOPICAL PATCH TD SCH (10:42)
[2016-11-20] MEDS: LIDOCAINE 5% TOPICAL PATCH TP SCH (10:43)
[2016-11-20] MEDS: BACITRACIN 0.9 GM PACKET TP SCH ×2 (10:43→22:07)
[2016-11-20] MEDS: DIVALPROEX SODIUM 500 MG TABLET E.C. PO SCH ×2 (10:44→22:08)
[2016-11-20] MEDS: PRENATAL VITAMINS W/ FOLIC ACID TABLET (FP) PO SCH (10:45)
[2016-11-20] MEDS: TAMSULOSIN HCL 0.4 MG CAP.ER.24H (FP) PO SCH (10:46)
--- NOTE | 2016-11-20 11:48 | PN ---
S Progress Note (SOAP) Subjective: C/O ANXIETY,TREMORS,BODY ACHES,NAUSEA, DIARRHEA. Objective: 11/20/16 11:47 Vital Signs Temperature 96.9 F L 11/20/16 10:02 Pulse Rate 92 H 11/20/16 10:02 Respiratory Rate 20 11/20/16 10:02 Blood Pressure 100/76 11/20/16 10:02 O2 Sat by Pulse Oximetry (%) Laboratory Last Values WBC 3.7 K/mm3 (4.0-10.0) L 11/18/16 07:20 RBC 4.20 M/mm3 (4.00-5.60) 11/18/16 07:20 Hgb 12.7 GM/dL (11.7-16.9) 11/18/16 07:20 Hct 38.5 % (35.4-49) 11/18/16 07:20 MCV 91.7 fl (80-96) 11/18/16 07:20 MCH 30.3 pg (25.7-33.7) 11/18/16 07:20 MCHC 33.0 g/dl (32.0-35.9) 11/18/16 07:20 RDW 14.5 % (11.9-15.9) 11/18/16 07:20 Plt Count 124 K/MM3 (134-434) L 11/18/16 07:20 MPV 10.4 fl (7.5-11.1) 11/18/16 07:20 Sodium 142 mmol/L (136-145) 11/18/16 07:20 Potassium 4.1 mmol/L (3.5-5.1) 11/18/16 07:20 Chloride 108 mmol/L (98-107) H 11/18/16 07:20 Carbon Dioxide 27 mmol/L (21-32) 11/18/16 07:20 Anion Gap 7 (8-16) L 11/18/16 07:20 BUN 14 mg/dL (7-18) D 11/18/16 07:20 Creatinine 0.7 mg/dL (0.7-1.3) D 11/18/16 07:20 Creat Clearance w eGFR > 60 (>60) 11/18/16 07:20 Random Glucose 95 mg/dL (74-106) 11/18/16 07:20 Calcium 8.6 mg/dL (8.5-10.1) 11/18/16 07:20 Total Bilirubin 0.8 mg/dL (0.2-1.0) D 11/18/16 07:20 AST 17 U/L (15-37) D 11/18/16 07:20 ALT 21 U/L (12-78) 11/18/16 07:20 Alkaline Phosphatase 54 U/L (45-117) 11/18/16 07:20 Total Protein 5.8 g/dl (6.4-8.2) L 11/18/16 07:20 Albumin 3.1 g/dl (3.4-5.0) L 11/18/16 07:20 Urine Color Yellow 11/17/16 15:00 Urine Appearance Clear 11/17/16 15:00 Urine pH 5.0 (5.0-8.0) 11/17/16 15:00 Ur Specific [place] 1.025 (1.005-1.025) 11/17/16 15:00 Urine Protein Negative (NEGATIVE) 11/17/16 15:00 Urine Glucose (UA) Negative (NEGATIVE) 11/17/16 15:00 Urine Ketones Trace (NEGATIVE) H 11/17/16 15:00 Urine Blood Negative (NEGATIVE) 11/17/16 15:00 Urine Nitrite Negative (NEGATIVE) 11/17/16 15:00 Urine Bilirubin Negative (NEGATIVE) 11/17/16 15:00 Urine Urobilinogen 2.0 mg/dL (0.2-1.0) 11/17/16 15:00 Ur Leukocyte Esterase Negative (NEGATIVE) 11/17/16 15:00 Valproic Acid 18.511 ug/ml (50-100) L 11/18/16 07:20 RPR Titer Nonreactive (NONREACTIVE) 11/18/16 07:20 HIV 1&2 Antibody Screen Negative 11/18/16 07:20 HIV P24 Antigen Negative 11/18/16 07:20 LABS NOTED Assessment: 11/20/16 11:47 WITHDRAWAL SX Plan: CONTINUE DETOX
[2016-11-20] MEDS ORDERED: ONDANSETRON *ODT* 4 MG TABLET SL PRN (11:50)
[2016-11-20] MEDS: chlordiazePOXIDE HCL 10 MG CAPSULE PO SCH ×2 (16:49→22:07)
[2016-11-20] MEDS: IBUPROFEN 600 MG TABLET (FP) PO PRN (17:22)
[2016-11-20] MEDS ORDERED: LATANOPROST 0.005% OPHTH SOLN 2.5ML BOTTLE OU SCH ×2 (19:00→20:00)
[2016-11-20] MEDS ORDERED: BRIMONIDINE TARTRATE 0.2% OPHTHALMIC 5 ML BOTTLE OU SCH ×2 (19:00)
[2016-11-20] MEDS ORDERED: TAMSULOSIN HCL 0.4 MG CAP.ER.24H (FP) PO SCH (22:00)
[2016-11-20 22:07] VITALS: BP 119/85; PULSE 87; TEMP 98
[2016-11-20] MEDS: THIAMINE HCL 100 MG TABLET (FP) PO SCH (22:07)
[2016-11-20] MEDS: QUEtiapine FUMARATE 100 MG TABLET (FP) PO SCH (22:07)
[2016-11-20] MEDS: LIDOCAINE PATCH REMOVAL MC SCH (22:08)
[2016-11-21] MEDS: chlordiazePOXIDE HCL 10 MG CAPSULE PO SCH (06:27)
--- NOTE | 2016-11-21 11:02 | DS ---
[facility] Detox Discharge Summary Admission Date: 11/17/16 Discharge Date: 11/21/16 - History Present History: Alcohol Dependence, Cocaine Dependence Additional Comments: DETOX COMPLETED. PT REMINDED TO FOLLOW UP WITH HIS PCP, DR MIRIAN GRIMM AT [facility] [address], [place] FOR MEDICAL MANAGEMENT OF COMORBID CONDITIONS. Pertinent Past History: ASTHMA GLAUCOMA GERD IBS DEPRESSION - Physical Exam Results Vital Signs: Vital Signs Temperature 98 F 11/20/16 22:06 Pulse Rate 87 11/20/16 22:06 Respiratory Rate 18 11/21/16 03:30 Blood Pressure 119/85 11/20/16 22:06 O2 Sat by Pulse Oximetry (%) Pertinent Admission Physical Exam Findings: WITHDRAWAL SX Laboratory Last Values WBC 3.7 K/mm3 (4.0-10.0) L 11/18/16 07:20 RBC 4.20 M/mm3 (4.00-5.60) 11/18/16 07:20 Hgb 12.7 GM/dL (11.7-16.9) 11/18/16 07:20 Hct 38.5 % (35.4-49) 11/18/16 07:20 MCV 91.7 fl (80-96) 11/18/16 07:20 MCH 30.3 pg (25.7-33.7) 11/18/16 07:20 MCHC 33.0 g/dl (32.0-35.9) 11/18/16 07:20 RDW 14.5 % (11.9-15.9) 11/18/16 07:20 Plt Count 124 K/MM3 (134-434) L 11/18/16 07:20 MPV 10.4 fl (7.5-11.1) 11/18/16 07:20 Sodium 142 mmol/L (136-145) 11/18/16 07:20 Potassium 4.1 mmol/L (3.5-5.1) 11/18/16 07:20 Chloride 108 mmol/L (98-107) H 11/18/16 07:20 Carbon Dioxide 27 mmol/L (21-32) 11/18/16 07:20 Anion Gap 7 (8-16) L 11/18/16 07:20 BUN 14 mg/dL (7-18) D 11/18/16 07:20 Creatinine 0.7 mg/dL (0.7-1.3) D 11/18/16 07:20 Creat Clearance w eGFR > 60 (>60) 11/18/16 07:20 Random Glucose 95 mg/dL (74-106) 11/18/16 07:20 Calcium 8.6 mg/dL (8.5-10.1) 11/18/16 07:20 Total Bilirubin 0.8 mg/dL (0.2-1.0) D 11/18/16 07:20 AST 17 U/L (15-37) D 11/18/16 07:20 ALT 21 U/L (12-78) 11/18/16 07:20 Alkaline Phosphatase 54 U/L (45-117) 11/18/16 07:20 Total Protein 5.8 g/dl (6.4-8.2) L 11/18/16 07:20 Albumin 3.1 g/dl (3.4-5.0) L 11/18/16 07:20 Urine Color Yellow 11/17/16 15:00 Urine Appearance Clear 11/17/16 15:00 Urine pH 5.0 (5.0-8.0) 11/17/16 15:00 Ur Specific [place] 1.025 (1.005-1.025) 11/17/16 15:00 Urine Protein Negative (NEGATIVE) 11/17/16 15:00 Urine Glucose (UA) Negative (NEGATIVE) 11/17/16 15:00 Urine Ketones Trace (NEGATIVE) H 11/17/16 15:00 Urine Blood Negative (NEGATIVE) 11/17/16 15:00 Urine Nitrite Negative (NEGATIVE) 11/17/16 15:00 Urine Bilirubin Negative (NEGATIVE) 11/17/16 15:00 Urine Urobilinogen 2.0 mg/dL (0.2-1.0) 11/17/16 15:00 Ur Leukocyte Esterase Negative (NEGATIVE) 11/17/16 15:00 Valproic Acid 18.511 ug/ml (50-100) L 11/18/16 07:20 RPR Titer Nonreactive (NONREACTIVE) 11/18/16 07:20 HIV 1&2 Antibody Screen Negative 11/18/16 07:20 HIV P24 Antigen Negative 11/18/16 07:20 - Treatment Hospital Course: Detox Protocol Followed, Detoxed Safely, Responded well, Discharged Condition Good, Rehab Referral Accepted Patient has Accepted a Rehab Referral to: [facility] - Medication Discharge Medications: Ambulatory Orders Brimonidine Tartrate [Alphagan 0.2% -] 1 drop OU BID 08/06/16 Divalproex [Depakote -] 1,000 mg PO BID 08/06/16 Latanoprost 0.005% Eye Drops [Xalatan 0.005% Eye Drops -] 1 drop OU HS 08/06/16 Quetiapine Fumarate [Seroquel] 100 mg PO HS 08/06/16 Tamsulosin HCl [Flomax -] 0.4 mg PO DAILY 08/06/16 Meloxicam [Mobic (Nf) -] 7.5 mg PO DAILY 11/17/16 - Diagnosis (1) Alcohol dependence with uncomplicated withdrawal Status: Acute (2) Cocaine dependence, uncomplicated Status: Acute (3) Nicotine dependence Status: Acute Qualifiers: Nicotine product type: cigarettes Substance use status: in withdrawal Qualified Code(s): F17.213 - Nicotine dependence, cigarettes, with withdrawal (4) GERD (gastroesophageal reflux disease) Status: Chronic Qualifiers: Esophagitis presence: without esophagitis Qualified Code(s): K21.9 - Gastro-esophageal reflux disease without esophagitis (5) Glaucoma Status: Chronic Qualifiers: Glaucoma type: open-angle Open angle glaucoma type: primary Laterality: bilateral Glaucoma stage: stage unspecified Qualified Code(s): H40.1130 - Primary open-angle glaucoma, bilateral, stage unspecified (6) IBS (irritable bowel syndrome) Status: Chronic Qualifiers: Irritable bowel syndrome type: unspecified Qualified Code(s): K58.9 - Irritable bowel syndrome without diarrhea (7) Post traumatic stress disorder (PTSD) Status: Chronic (8) Schizoaffective disorder Status: Chronic - AMA Did Patient Leave Against Medical Advice: No
== END 2016-11-21 09:22 | disposition home or self-care (01) | DRG 897 ==
LOC: YASAS 10:06 → Y3N 13:15
PROVIDERS: ADMIT Internal Medicine; ATTEND Internal Medicine
PROC: HZ2ZZZZ Detoxification Services for Substance Abuse Treatment (ICD-10-PCS; principal; 2016-11-21)
DX: F19.230 Other psychoactive substance dependence with withdrawal, uncomplicated (principal); F14.20 Cocaine dependence, uncomplicated; F10.230 Alcohol dependence with withdrawal, uncomplicated; F12.20 Cannabis dependence, uncomplicated; F17.210 Nicotine dependence, cigarettes, uncomplicated; F43.10 Post-traumatic stress disorder, unspecified; F25.9 Schizoaffective disorder, unspecified; K21.9 Gastro-esophageal reflux disease without esophagitis; K58.9 Irritable bowel syndrome, unspecified; H40.1130 Primary open-angle glaucoma, bilateral, stage unspecified
CPT/HCPCS: 36415; 80053; 80164; 81003; 85027; 86593; 87389; 93005; 93010

== ENCOUNTER 2016-12-18 14:27 | Inpatient (IN) | payer OTHER ==
[2016-12-18 16:14] VITALS: BMI 24.7
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
[2016-12-18] MEDS ORDERED: MAG HYDROX/AL HYDROX/SIMETH 30 ML UNIT-DOSE CUP PO PRN (17:04)
[2016-12-18] MEDS ORDERED: NICOTINE POLACRILEX 2 MG GUM BC PRN (17:04)
[2016-12-18] MEDS ORDERED: diphenhydrAMINE HCL 50 MG CAPSULE PO PRN (17:04)
[2016-12-18] MEDS ORDERED: hydrOXYzine PAMOATE 50 MG CAPSULE (FP) PO PRN (17:04)
[2016-12-18] MEDS ORDERED: MENTHOL/PHENOL 1 EACH UD MM PRN (17:04)
[2016-12-18] MEDS ORDERED: P-EPHED 60MG/TRIPROLIDI 2.5MG TABLET PO PRN (17:04)
[2016-12-18] MEDS ORDERED: guaiFENesin/D-METHORPHAN HB 10 ML UNIT-DOSE CUPS PO PRN (17:04)
[2016-12-18] MEDS ORDERED: LOPERAMIDE HCL 2 MG CAPSULE PO PRN (17:04)
[2016-12-18] MEDS ORDERED: MAGNESIUM CITRATE 300 ML BOTTLE PO PRN (17:04)
[2016-12-18] MEDS ORDERED: MAGNESIUM HYDROX 2400MG/30ML ORAL SUSPENSION 30 ML CUP PO PRN (17:04)
[2016-12-18 21:15] LABS: URINE APPEARANCE CLEAR; URINE BILIRUBIN NEGATIVE (NEGATIVE); URINE BLOOD NEGATIVE (NEGATIVE); URINE COLOR YELLOW; URINE GLUCOSE (UA) NEGATIVE (NEGATIVE); URINE KETONE NEGATIVE (NEGATIVE); URINE LEUK ESTERASE NEGATIVE (NEGATIVE); URINE NITRITE NEGATIVE (NEGATIVE); URINE PROTEIN NEGATIVE (NEGATIVE); URINE UROBILINOGEN NEGATIVE mg/dL (0.2-1.0)
[2016-12-18] MEDS ORDERED: LATANOPROST 0.005% OPHTH SOLN 2.5ML BOTTLE OU SCH (22:00)
[2016-12-18] MEDS ORDERED: TAMSULOSIN HCL 0.4 MG CAP.ER.24H (FP) PO SCH (22:00)
[2016-12-18] MEDS ORDERED: THIAMINE HCL 100 MG TABLET (FP) PO SCH (22:00)
[2016-12-18] MEDS ORDERED: BRIMONIDINE TARTRATE 0.2% OPHTHALMIC 5 ML BOTTLE OU SCH (22:00)
[2016-12-19] MEDS: ACETAMINOPHEN 325 MG TABLET (FP) PO PRN ×2 (03:16)
[2016-12-19 06:46] VITALS: BP 123/85; PULSE 73; TEMP 97.9
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
--- NOTE | 2016-12-19 09:56 | PN ---
S Progress Note Note: Patient was admitted yesterday to inpatient rehab to address alcohol dependence. He wants to leave against medical advice before admission assessment can be done.
[2016-12-19] MEDS ORDERED: PRENATAL VITAMINS W/ FOLIC ACID TABLET (FP) PO SCH (10:00)
[2016-12-19] MEDS ORDERED: PANTOPRAZOLE 40 MG TABLET (FP) PO SCH (10:00)
[2016-12-19] MEDS ORDERED: NICOTINE 14 MG/24 HOURS TOPICAL PATCH TD SCH (10:00)
--- NOTE | 2016-12-20 20:02 | EKG ---
Test Reason : Blood Pressure : / mmHG Vent. Rate : 074 BPM Atrial Rate : 074 BPM P-R Int : 174 ms QRS Dur : 094 ms QT Int : 414 ms P-R-T Axes : 070 011 057 degrees QTc Int : 459 ms NORMAL SINUS RHYTHM MINIMAL VOLTAGE CRITERIA FOR LVH, MAY BE NORMAL VARIANT NONSPECIFIC T WAVE ABNORMALITY ABNORMAL ECG WHEN COMPARED WITH ECG OF 17-NOV-2016 13:19, NONSPECIFIC T WAVE ABNORMALITY NO LONGER EVIDENT IN INFERIOR LEADS Confirmed by BLANQUITA TORRES MD ([id number]) on 12/20/2016 8:02:08 PM Referred By: Lona Becerra Confirmed By:BLANQUITA TORRES MD
== END 2016-12-19 09:31 | disposition left against medical advice (07) | DRG 894 ==
LOC: YASAS 14:27 → Y5N 17:40
PROVIDERS: ADMIT Psychiatry & Neurology Psychiatry; ATTEND Psychiatry & Neurology Psychiatry
PROC: HZ42ZZZ Group Counseling for Substance Abuse Treatment, Cognitive-Behavioral (ICD-10-PCS; principal; 2016-12-18)
DX: F19.20 Other psychoactive substance dependence, uncomplicated (principal); F17.213 Nicotine dependence, cigarettes, with withdrawal; F31.81 Bipolar II disorder; F10.20 Alcohol dependence, uncomplicated; N40.0 Benign prostatic hyperplasia without lower urinary tract symptoms; K21.9 Gastro-esophageal reflux disease without esophagitis; K58.9 Irritable bowel syndrome, unspecified; H40.1130 Primary open-angle glaucoma, bilateral, stage unspecified; Z86.69 Personal history of other diseases of the nervous system and sense organs; Z91.5 Personal history of self-harm
CPT/HCPCS: 81003; 93005; 93010

== ENCOUNTER 2019-11-10 22:05 | Inpatient (IN) | payer OTHER ==
[2019-11-10 22:45] VITALS: BMI 20.7
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
[2019-11-10] MEDS ORDERED: MAGNESIUM HYDROX 2400MG/30ML ORAL SUSPENSION 30 ML CUP PO PRN (23:18)
[2019-11-10] MEDS ORDERED: MAGNESIUM CITRATE 300 ML BOTTLE PO PRN (23:18)
[2019-11-10] MEDS ORDERED: MENTHOL/PHENOL 1 EACH UD MM PRN (23:18)
[2019-11-10] MEDS ORDERED: NICOTINE POLACRILEX 2 MG GUM BUC PRN (23:18)
[2019-11-10] MEDS ORDERED: chlordiazePOXIDE HCL 10 MG CAPSULE PO PRN (23:18)
[2019-11-10] MEDS ORDERED: ONDANSETRON *ODT* 4 MG TABLET SL ONE (23:18)
[2019-11-10] MEDS ORDERED: DICYCLOMINE HCL 10 MG CAPSULE PO PRN (23:18)
[2019-11-10] MEDS ORDERED: ACETAMINOPHEN 325 MG TABLET (FP) PO PRN ×2 (23:18)
[2019-11-10] MEDS ORDERED: BISMUTH SUBSALICYLATE 524 MG/30 ML UD PO PRN (23:18)
[2019-11-10] MEDS ORDERED: guaiFENesin 200 MG/10 ML 10 ML UNIT-DOSE CUPS PO PRN (23:18)
[2019-11-10] MEDS ORDERED: P-EPHED 60MG/TRIPROLIDI 2.5MG TABLET PO PRN (23:18)
[2019-11-10] MEDS ORDERED: cloNIDine HCL 0.1 MG TABLET PO PRN (23:57)
[2019-11-11] MEDS: chlordiazePOXIDE HCL 25 MG CAPSULE PO SCH ×4 (00:33→22:12)
[2019-11-11] MEDS: IBUPROFEN 400 MG TABLET (FP) PO PRN ×3 (01:53→17:32)
[2019-11-11] MEDS: hydrOXYzine PAMOATE 25 MG CAPSULE (FP) PO PRN ×2 (02:08→17:58)
[2019-11-11] MEDS: METHOCARBAMOL 500 MG TABLET PO PRN ×2 (05:24→19:36)
[2019-11-11] MEDS: PRENATAL VITAMINS W/ FOLIC ACID TABLET (FP) PO SCH (10:07)
[2019-11-11] MEDS: NICOTINE 14 MG/24 HOURS TOPICAL PATCH TD SCH (10:07)
[2019-11-11] MEDS: BRIMONIDINE TARTRATE 0.2% OPHTHALMIC 5 ML BOTTLE OU SCH ×2 (10:45→22:13)
[2019-11-11] MEDS: MAG HYDROX/AL HYDROX/SIMETH 30 ML UNIT-DOSE CUP PO PRN ×2 (11:55→17:31)
--- NOTE | 2019-11-11 12:07 | EKG ---
Test Reason : Blood Pressure : / mmHG Vent. Rate : 065 BPM Atrial Rate : 065 BPM P-R Int : 162 ms QRS Dur : 098 ms QT Int : 434 ms P-R-T Axes : 067 030 040 degrees QTc Int : 451 ms NORMAL SINUS RHYTHM INCOMPLETE RIGHT BUNDLE BRANCH BLOCK BORDERLINE ECG WHEN COMPARED WITH ECG OF 18-DEC-2016 21:46, INCOMPLETE RIGHT BUNDLE BRANCH BLOCK IS NOW PRESENT Confirmed by MD Kory, Robinson ([id number]) on 11/11/2019 12:06:48 PM Referred By: Chilo Layne Confirmed By:Robinson Horn MD
--- NOTE | 2019-11-11 12:20 | PN ---
S CIWA - CIWA Score Nausea/Vomitin-Mild Nausea/No Vomiting Muscle Tremors: 3 Anxiety: 2 Agitation: 1-Slight > Activity Paroxysmal Sweats: 1-Minimal Palms Moist Orientation: 0-Oriented Tacttile Disturbances: 1-Very Mild Itch/Numbness Auditory Disturbances: 0-None Visual Disturbances: 2-Mild Sensitivity Headache: 1-Very Mild CIWA-Ar Total Score: 12 [facility] Progress Note (SOAP) Subjective: 58 years old male admitted on 11/10/19 for alcohol withdrawal sx management treating with librium detox regiment ate breakfast tolerated food well resting in bed ensure 120ml supplement tid Objective: 11/11/19 12:23 Vital Signs - 24 hr 11/10/19 11/10/19 11/11/19 22:40 22:55 00:22 Temperature 97.2 F L 97.2 F L 97.6 F Pulse Rate 71 71 72 Respiratory 18 18 18 Rate Blood Pressure 110/75 110/75 124/75 O2 Sat by Pulse Oximetry (%) 11/11/19 11/11/19 11/11/19 00:23 06:13 08:45 Temperature 97.3 F L 97.3 F L Pulse Rate 59 L 68 Respiratory 18 18 Rate Blood Pressure 119/68 109/64 O2 Sat by Pulse 100 99 Oximetry (%) 11/11/19 12:23 lab pending Assessment: 11/11/19 12:23 alcohol withdrawal Plan: librium regiment
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
[2019-11-11 16:11] LABS: HEMATOCRIT 39.6 % (35.4-49); HEMOGLOBIN 12.8 GM/dL (11.7-16.9); MCH 29.9 pg (25.7-33.7); MCHC 32.3 g/dl (32.0-35.9); MEAN CELL VOLUME 92.5 fl (80-96); MEAN PLT VOLUME 10.2 fl (7.5-11.1); PLATELET COUNT 143 K/MM3 (134-434); RBC 4.28 M/mm3 (4.00-5.60); RDW 14.5 % (11.9-15.9); WHITE BLOOD COUNT 3.7 K/mm3 (4.0-10.0)
[2019-11-11 16:16] LABS: ALBUMIN 3.5 g/dl (3.4-5.0); BILIRUBIN,TOTAL 0.7 mg/dL (0.2-1); BLOOD UREA NITROGEN 20.7 mg/dL (7-18); CALCIUM 8.9 mg/dL (8.5-10.1); CREATININE 1.1 mg/dL (0.55-1.3); POTASSIUM 3.6 mmol/L (3.5-5.1); TOT PROT 6.9 g/dl (6.4-8.2)
[2019-11-11] MEDS ORDERED: MASKS NR ONE (22:11)
[2019-11-11] MEDS: THIAMINE HCL 100 MG TABLET (FP) PO SCH (22:12)
[2019-11-11] MEDS: LATANOPROST 0.005% OPHTH SOLN 2.5ML BOTTLE OU SCH (22:12)
[2019-11-11] MEDS: MELATONIN 5 MG TABLETS PO SCH (22:13)
[2019-11-12] MEDS: chlordiazePOXIDE 5 MG CAPSULE PO SCH ×3 (05:41→22:13)
[2019-11-12] MEDS: IBUPROFEN 400 MG TABLET (FP) PO PRN (05:46)
[2019-11-12] MEDS: METHOCARBAMOL 500 MG TABLET PO PRN ×2 (05:46→17:55)
[2019-11-12] MEDS: NICOTINE 14 MG/24 HOURS TOPICAL PATCH TD SCH (10:16)
[2019-11-12] MEDS: PRENATAL VITAMINS W/ FOLIC ACID TABLET (FP) PO SCH (10:17)
--- NOTE | 2019-11-12 10:40 | PN ---
[facility] CIWA - CIWA Score Nausea/Vomitin-Mild Nausea/No Vomiting Muscle Tremors: 2 Anxiety: 3 Agitation: 1-Slight > Activity Paroxysmal Sweats: No Perspiration Orientation: 0-Oriented Tacttile Disturbances: 0-None Auditory Disturbances: 0-None Visual Disturbances: 2-Mild Sensitivity Headache: 0-None Present CIWA-Ar Total Score: 9 S Progress Note (SOAP) Subjective: 58 years old male admitted on 11/10/19 for alcohol withdrawal sx management treating with librium detox regiment long history of bipolar disorder seen by psychiatrist prefers no psychotropic long history of hemorroid no bleeding but itchy hemorroid ointment bid small hard stool MOM 30ml po x 1 if no effect citroma x 1 Objective: 11/12/19 10:44 Vital Signs - 24 hr 11/11/19 11/11/19 11/12/19 12:35 16:49 06:09 Temperature 96.9 F L 97.3 F L 98.2 F Pulse Rate 67 76 66 Respiratory 18 16 18 Rate Blood Pressure 118/76 101/68 105/60 O2 Sat by Pulse 97 98 Oximetry (%) 11/12/19 08:50 Temperature 96.8 F L Pulse Rate 60 Respiratory 18 Rate Blood Pressure 122/68 O2 Sat by Pulse Oximetry (%) Laboratory Tests 11/11/19 11/11/19 11/11/19 10:10 10:10 10:10 WBC 3.7 L RBC 4.28 Hgb 12.8 Hct 39.6 MCV 92.5 MCH 29.9 MCHC 32.3 RDW 14.5 Plt Count 143 MPV 10.2 Sodium 138 Potassium 3.6 Chloride 102 Carbon Dioxide 27 Anion Gap 9 BUN 20.7 H Creatinine 1.1 Est GFR (CKD-EPI)AfAm 85.31 Est GFR (CKD-EPI)NonAf 73.61 Random Glucose 88 Calcium 8.9 Total Bilirubin 0.7 AST 29 ALT 52 Alkaline Phosphatase 63 Total Protein 6.9 Albumin 3.5 Syphilis Serology Non-reactive 11/12/19 10:45 covid pending Assessment: 11/12/19 10:45 alcohol withdrawal hemorroid gerd 11/12/19 10:47 constipation Plan: librium regiment adjusting alphagan to tid hemorroid ointment bid gern discontinue motrin pepcid 20 mg po bid MOM 30ml po x 1 if no effect citroma x 1 requests circuit walker due to lactose intolerance circuit walker referral
[2019-11-12] MEDS: FAMOTIDINE 20 MG TABLET PO SCH ×2 (10:43→22:14)
[2019-11-12] MEDS ORDERED: MAGNESIUM HYDROX 2400MG/30ML ORAL SUSPENSION 30 ML CUP PO ONE (10:43)
[2019-11-12] MEDS ORDERED: BENZOCAINE 28 GM HEMORRHOIDAL OINTMENT RC SCH (10:45)
[2019-11-12] MEDS: hydrOXYzine PAMOATE 25 MG CAPSULE (FP) PO PRN (10:45)
[2019-11-12] MEDS: PHENYLEPHRINE HCL/COCOA BUTTER SUPPOSITORY RC SCH ×2 (13:07→22:15)
[2019-11-12] MEDS: BRIMONIDINE TARTRATE 0.2% OPHTHALMIC 5 ML BOTTLE OU SCH ×2 (13:44→22:17)
--- NOTE | 2019-11-12 17:42 | PN ---
S Progress Note Note: pt requesting Motrin for pain and hemorrhoidal ointment . Vital Signs - 24 hr 11/12/19 11/12/19 11/12/19 06:09 08:50 12:38 Temperature 98.2 F 96.8 F L 96.8 F L Pulse Rate 66 60 77 Respiratory 18 18 16 Rate Blood Pressure 105/60 122/68 123/74 O2 Sat by Pulse 98 100 Oximetry (%) 11/12/19 16:42 Temperature 98.0 F Pulse Rate 69 Respiratory 18 Rate Blood Pressure 109/61 O2 Sat by Pulse Oximetry (%) MOTRIN 600 MG Q 6 HRS PRN AND HYDROCORTISONE 2..5% OINTMENT ONCE DAILY TOPICAL APPLICATION PRN ORDERED
[2019-11-12] MEDS: IBUPROFEN 600 MG TABLET (FP) PO PRN (17:55)
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
[2019-11-12] MEDS: GABAPENTIN 100 MG CAPSULE PO SCH ×3 (19:25→22:14)
[2019-11-12] MEDS: THIAMINE HCL 100 MG TABLET (FP) PO SCH (22:14)
[2019-11-12] MEDS: MELATONIN 5 MG TABLETS PO SCH (22:14)
[2019-11-12] MEDS: LATANOPROST 0.005% OPHTH SOLN 2.5ML BOTTLE OU SCH (22:18)
[2019-11-12] MEDS: HYDROCORTISONE 2.5% TOPICAL CREAM 30 GM TUBE PR SCH (22:29)
[2019-11-13] MEDS ORDERED: chlordiazePOXIDE HCL 10 MG CAPSULE PO PRN
[2019-11-13] MEDS: chlordiazePOXIDE HCL 10 MG CAPSULE PO SCH ×3 (05:41→22:31)
[2019-11-13] MEDS: METHOCARBAMOL 500 MG TABLET PO PRN ×3 (05:42→22:32)
[2019-11-13] MEDS: IBUPROFEN 600 MG TABLET (FP) PO PRN ×4 (05:42→22:31)
[2019-11-13] MEDS: GABAPENTIN 100 MG CAPSULE PO SCH ×3 (05:42→22:33)
[2019-11-13] MEDS: BRIMONIDINE TARTRATE 0.2% OPHTHALMIC 5 ML BOTTLE OU SCH ×3 (06:23→22:32)
[2019-11-13] MEDS: HYDROCORTISONE 2.5% TOPICAL CREAM 30 GM TUBE PR SCH (10:10)
[2019-11-13] MEDS: NICOTINE 14 MG/24 HOURS TOPICAL PATCH TD SCH (10:10)
[2019-11-13] MEDS: PHENYLEPHRINE HCL/COCOA BUTTER SUPPOSITORY RC SCH ×2 (10:11→23:01)
[2019-11-13] MEDS: FAMOTIDINE 20 MG TABLET PO SCH ×2 (10:11→22:33)
[2019-11-13] MEDS: PRENATAL VITAMINS W/ FOLIC ACID TABLET (FP) PO SCH (10:11)
[2019-11-13] MEDS: hydrOXYzine PAMOATE 25 MG CAPSULE (FP) PO PRN ×2 (11:15→22:33)
--- NOTE | 2019-11-13 11:21 | PN ---
S CIWA - CIWA Score Nausea/Vomitin-No Nausea/No Vomiting Muscle Tremors: 1-None Visible, but [employer] Anxiety: 1-Mildly Anxious Agitation: 1-Slight > Activity Paroxysmal Sweats: No Perspiration Orientation: 0-Oriented Tacttile Disturbances: 0-None Auditory Disturbances: 0-None Visual Disturbances: 0-None Headache: 2-Mild CIWA-Ar Total Score: 5 [facility] Progress Note (SOAP) Subjective: 58 years old male admitted on 11/10/19 for alcohol withdrawal sx management treating with librium detox regiment seen by two medical provider for chronic back pain and hemorroid continue hemorroid suppository and hydrocortison cream continue motrin prn and gabapentin 100mg po tid mr alva is doing well with hemorroid cream and suppository as well as gabapentin mr alva agrees to follow up with [facility] service for hemorroid and chronic back pain Objective: 11/13/19 11:20 Vital Signs - 24 hr 11/12/19 11/12/19 11/12/19 12:38 16:42 20:39 Temperature 96.8 F L 98.0 F 97.5 F L Pulse Rate 77 69 68 Respiratory 16 18 18 Rate Blood Pressure 123/74 109/61 107/71 O2 Sat by Pulse 100 99 Oximetry (%) 11/13/19 11/13/19 06:21 08:53 Temperature 97.5 F L 97.7 F Pulse Rate 68 60 Respiratory 18 18 Rate Blood Pressure 106/59 L 113/69 O2 Sat by Pulse 96 Oximetry (%) Laboratory Tests 11/11/19 11/11/19 11/11/19 00:00 10:10 10:10 WBC 3.7 L RBC 4.28 Hgb 12.8 Hct 39.6 MCV 92.5 MCH 29.9 MCHC 32.3 RDW 14.5 Plt Count 143 MPV 10.2 Sodium Potassium Chloride Carbon Dioxide Anion Gap BUN Creatinine Est GFR (CKD-EPI)AfAm Est GFR (CKD-EPI)NonAf Random Glucose Calcium Total Bilirubin AST ALT Alkaline Phosphatase Total Protein Albumin Syphilis Serology Non-reactive COVID-19 ([facility]) Not detected 11/11/19 10:10 WBC RBC Hgb Hct MCV MCH MCHC RDW Plt Count MPV Sodium 138 Potassium 3.6 Chloride 102 Carbon Dioxide 27 Anion Gap 9 BUN 20.7 H Creatinine 1.1 Est GFR (CKD-EPI)AfAm 85.31 Est GFR (CKD-EPI)NonAf 73.61 Random Glucose 88 Calcium 8.9 Total Bilirubin 0.7 AST 29 ALT 52 Alkaline Phosphatase 63 Total Protein 6.9 Albumin 3.5 Syphilis Serology COVID-19 ([facility]) lab noted Assessment: 11/13/19 11:20 alcohol withdrawal hemorroid chronic back pain Plan: librium regiment suppository for hemorroid gabapentin for chronic back pain
[2019-11-13 12:20] LABS: PH,URINE 7.5 (5.0-8.0); URINE APPEARANCE CLEAR; URINE BILIRUBIN NEGATIVE (NEGATIVE); URINE COLOR YELLOW; URINE GLUCOSE (UA) NEGATIVE (NEGATIVE); URINE KETONE NEGATIVE (NEGATIVE); URINE LEUK ESTERASE NEGATIVE (NEGATIVE); URINE NITRITE NEGATIVE (NEGATIVE); URINE PROTEIN NEGATIVE (NEGATIVE)
--- NOTE | 2019-11-13 14:37 | PN ---
Psychiatric Progress Note Vital Signs: Vital Signs Period Temp Pulse Resp BP Sys/Her Pulse Ox Last 24 Hr 97.1 F-98.0 F 60-69 18-18 106-123/59-78 96-100 Date of Session: 11/13/19 Chief Complaint:: " I don't like the way some of the staff talk to me." HPI: Patient admitted to for treatment of alcohol, marijuana, heroin, cocaine, and nicotine dependence. Consultation ordered due to mood instability. ROS: Patient is resting in bed. Calm + cooperative. Alert +Oriented x3. Current Medications: Active Medications Generic Name Dose Route Start Last Admin Trade Name Freq PRN Reason Stop Dose Admin Acetaminophen 650 mg 11/10/19 23:18 Tylenol - PO Q6H PRN PAIN LEVEL 4 - 6 Acetaminophen 650 mg 11/10/19 23:18 Tylenol - PO Q6H PRN FEVER Al Hydroxide/Mg Hydroxide 30 ml 11/10/19 23:18 11/11/19 17:31 Mylanta Oral Suspension - PO 30 ml Q6H PRN Administration DYSPEPSIA Bismuth Subsalicylate 524 mg 11/10/19 23:18 Pepto-Bismol - PO Q1H PRN DIARRHEA Brimonidine Tartrate 1 drop 11/12/19 14:00 11/13/19 13:21 Alphagan 0.2% - OU 1 drop TID TALITA Administration Chlordiazepoxide HCl 10 mg 11/13/19 00:00 Librium - PO 11/13/19 23:59 Q12H PRN Signs/symptoms of Withdrawal Chlordiazepoxide HCl 10 mg 11/13/19 05:00 11/13/19 13:21 Librium - PO 11/13/19 21:01 10 mg Q8H TALITA Administration Chlordiazepoxide HCl 10 mg 11/14/19 05:00 Librium - PO 11/14/19 05:01 ONCE ONE Clonidine 0.1 mg 11/10/19 23:57 Catapres - PO Q4H PRN WITHDRAWAL(CONT SUBST) [place] Butter/Phenylephrine 1 each 11/12/19 11:15 11/13/19 10:11 Preparation H Suppository RC 1 each BID TALITA Administration Dicyclomine HCl 10 mg 11/10/19 23:18 Bentyl - PO 11/16/19 23:20 Q6H PRN Abdominal Cramping Eucalyptus/Menthol/Phenol/Sorbitol 1 each 11/10/19 23:18 Cepastat Lozenge - MM 11/16/19 23:19 Q4H PRN SORE THROAT Famotidine 20 mg 11/12/19 10:45 11/13/19 10:11 Pepcid - PO 20 mg BID TALITA Administration Gabapentin 100 mg 11/12/19 19:09 11/13/19 13:20 Neurontin - PO 100 mg TID TALITA Administration Guaifenesin 10 ml 11/10/19 23:18 Robitussin - PO Q6H PRN COUGH Hydrocortisone 1 applic 11/12/19 17:45 11/13/19 10:10 Anusol 2.5% Hc Cream - GA 1 applic DAILY TALITA Administration Hydroxyzine Pamoate 25 mg 11/10/19 23:18 11/13/19 11:15 Vistaril - PO 11/16/19 23:19 25 mg Q4HWA PRN Administration ANXIETY Ibuprofen 600 mg 11/12/19 17:40 11/13/19 10:50 Motrin - PO 600 mg Q6H PRN Administration FEVER Latanoprost 1 drop 11/11/19 22:00 11/12/19 22:18 Xalatan 0.005% Eye Drops - OU 1 drop HS TALITA Administration Magnesium Citrate 300 ml 11/10/19 23:18 Citroma - PO Q48H PRN CONSTIPATION Magnesium Hydroxide 30 ml 11/10/19 23:18 Milk Of Magnesia - PO PRN PRN CONSTIPATION Melatonin 5 mg 11/11/19 22:00 11/12/19 22:14 Melatonin PO 5 mg HS TALITA Administration Methocarbamol 500 mg 11/10/19 23:18 11/13/19 05:42 Robaxin - PO 11/16/19 23:19 500 mg Q6H PRN Administration MUSCLE SPASMS Nicotine 14 mg 11/11/19 10:00 11/13/19 10:10 Nicoderm Patch - TD Not Given DAILY TALITA Nicotine Polacrilex 2 mg 11/10/19 23:18 Nicorette Gum - BUC Q2H PRN NICOTINE REPLACEMENT RX Multivit/Folic Acid/Iron 1 tab 11/11/19 10:00 11/13/19 10:11 Vitamins (Sjr) - PO 1 tab DAILY TALITA Administration Pseudoephedrine/Triprolidine 1 combo 11/10/19 23:18 Actifed - PO Q6H PRN NASAL CONGESTION Thiamine HCl 100 mg 11/11/19 22:00 11/12/19 22:14 Vitamin B1 - PO 100 mg HS TALITA Administration Medication(s) Change(s): Yes. Will add Seroquel 50mg HS. Current Side Effect: No Lab tests ordered: No Lab tests reviewed: Yes Provider note:: Consultation ordered due to report of patient having difficulty abiding by the rules on the unit and lashing out at staff. Patient seen by Dr. Jessica. Dr. Jessica note read and appreciated. Patient with a history of schizoaffective disorder. Upon approach patient observed to be laying in bed. Patient presented as calm, cooperative, alert +oriented X3. Patient asked about his behavior reguarding speaking aggressively to staff. Patient responded by stating, " If i feel that someone is speaking to me the wrong way or is being aggressive towards me then i do the same." Poultry Helper spoke to patient concerning resuming psychotropic medications but was reluctant at first. Mr. Naranjo states that he was receiving OPD at the [facility] on [address] and was prescribed seroquel + Depakote but is no longer on psychotropic medications. Patient stated to designer writer that he accepted PRN Vistaril and is in agreement in only accepting seroquel 50mg HS. Patient satisifed and receptive to feedback. Benefits and side effects discussed. Verbal consent given. Total face to face time:: 25 Mental Status Exam - Mental Status Exam Alert and Oriented to: Time, Place, Person Cognitive Function: Good Patient Appearance: Well Groomed Mood: Euthymic Affect: Appropriate Patient Behavior: Appropriate, Cooperative Speech Pattern: Appropriate Voice Loudness: Normal Thought Process: Intact, Goal Oriented Thought Disorder: Not Present Hallucinations: Denies Suicidal Ideation: Denies Homicidal Ideation: Denies Insight/Judgement: Poor Sleep: Fair Appetite: Fair Muscle strength/Tone: Normal Gait/Station: Other (Did not observe gait.) Psychiatric Treatment Plan - Problem List (1) Alcohol dependence with uncomplicated withdrawal Current Visit: Yes (2) Cannabis dependence Current Visit: Yes (3) Cocaine dependence, uncomplicated Current Visit: Yes (4) Schizoaffective disorder Current Visit: Yes (5) Substance induced mood disorder Current Visit: Yes (6) Depressed affect Current Visit: Yes
[2019-11-13] MEDS ORDERED: QUEtiapine FUMARATE 50 MG TABLET PO SCH (22:00)
[2019-11-13] MEDS: LATANOPROST 0.005% OPHTH SOLN 2.5ML BOTTLE OU SCH (22:31)
[2019-11-13] MEDS: THIAMINE HCL 100 MG TABLET (FP) PO SCH (22:32)
[2019-11-13] MEDS: MELATONIN 5 MG TABLETS PO SCH (22:32)
[2019-11-14] MEDS ORDERED: chlordiazePOXIDE HCL 10 MG CAPSULE PO ONE (05:00)
[2019-11-14] MEDS: BRIMONIDINE TARTRATE 0.2% OPHTHALMIC 5 ML BOTTLE OU SCH (08:03)
[2019-11-14] MEDS: GABAPENTIN 100 MG CAPSULE PO SCH (08:03)
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
[2019-11-14] MEDS: FAMOTIDINE 20 MG TABLET PO SCH (11:13)
[2019-11-14] MEDS: PRENATAL VITAMINS W/ FOLIC ACID TABLET (FP) PO SCH (11:13)
[2019-11-14] MEDS: METHOCARBAMOL 500 MG TABLET PO PRN (11:14)
[2019-11-14] MEDS: IBUPROFEN 600 MG TABLET (FP) PO PRN (11:15)
[2019-11-14] MEDS: NICOTINE 14 MG/24 HOURS TOPICAL PATCH TD SCH (11:16)
[2019-11-14] MEDS: PHENYLEPHRINE HCL/COCOA BUTTER SUPPOSITORY RC SCH (11:16)
[2019-11-14] MEDS: HYDROCORTISONE 2.5% TOPICAL CREAM 30 GM TUBE PR SCH (11:16)
[2019-11-14 11:30] VITALS: BP 125/81; PULSE 74; TEMP 97.8
== END 2019-11-14 12:20 | disposition other institution (70) | DRG 897 ==
LOC: YASAS 22:05 → Y3N 23:27 → Y5N DETOX 11-13 17:27
PROVIDERS: ADMIT Allergy & Immunology; ATTEND Allergy & Immunology
PROC: HZ2ZZZZ Detoxification Services for Substance Abuse Treatment (ICD-10-PCS; principal; 2019-11-10)
DX: F10.230 Alcohol dependence with withdrawal, uncomplicated (principal); F14.20 Cocaine dependence, uncomplicated; F11.23 Opioid dependence with withdrawal; F12.20 Cannabis dependence, uncomplicated; F17.210 Nicotine dependence, cigarettes, uncomplicated; F19.24 Other psychoactive substance dependence with psychoactive substance-induced mood disorder; F31.9 Bipolar disorder, unspecified; F25.9 Schizoaffective disorder, unspecified; F10.24 Alcohol dependence with alcohol-induced mood disorder; F43.10 Post-traumatic stress disorder, unspecified; H40.1130 Primary open-angle glaucoma, bilateral, stage unspecified; J45.909 Unspecified asthma, uncomplicated; K29.70 Gastritis, unspecified, without bleeding; K21.9 Gastro-esophageal reflux disease without esophagitis; K64.9 Unspecified hemorrhoids; M19.032 Primary osteoarthritis, left wrist; M54.89 Other dorsalgia; G89.29 Other chronic pain; G56.03 Carpal tunnel syndrome, bilateral upper limbs; N40.1 Benign prostatic hyperplasia with lower urinary tract symptoms; R35.0 Frequency of micturition; E73.9 Lactose intolerance, unspecified; R01.1 Cardiac murmur, unspecified; R45.89 Other symptoms and signs involving emotional state; Z62.810 Personal history of physical and sexual abuse in childhood; Z91.018 Allergy to other foods; Z86.69 Personal history of other diseases of the nervous system and sense organs
CPT/HCPCS: 36415; 80053; 81003; 85027; 86780; 93005; 93010; Q0162; U0003

== ENCOUNTER 2021-10-16 09:36 | Inpatient (IN) | payer OTHER ==
[2021-10-15 19:01] VITALS: BMI 23.7
[2021-10-16] MEDS: chlordiazePOXIDE HCL 25 MG CAPSULE PO SCH ×5 (06:00→22:30)
[~2021-10-16 09:36] MED LIST: ACETAMINOPHEN 325 MG TABLET (FP) PO PRN; BENZOCAINE/MENTHOL (CHLORASEPTIC ) LOZENGE MM PRN; BISMUTH SUBSALICYLATE 524 MG/30 ML PO PRN; DICYCLOMINE HCL 10 MG CAPSULE PO PRN; IBUPROFEN 600 MG TABLET (FP) PO ONE; LOPERAMIDE HCL 2 MG CAPSULE PO PRN; MAG HYDROX/AL HYDROX/SIMETH 30 ML UNIT-DOSE CUP PO PRN; MAGNESIUM CITRATE 300 ML BOTTLE PO PRN; MAGNESIUM HYDROX 2400MG/30ML ORAL SUSPENSION 30 ML CUP PO PRN; NICOTINE 10 MG CARTRIDGE (INHALER) IH PRN; ONDANSETRON *ODT* 4 MG TABLET SL PRN; chlordiazePOXIDE HCL 25 MG CAPSULE ONE; chlordiazePOXIDE HCL 25 MG CAPSULE PO PRN
[2021-10-16] MEDS ORDERED: chlordiazePOXIDE HCL 25 MG CAPSULE ONE (11:52)
[2021-10-16 12:00] LABS: HEMOGLOBIN 12.3 GM/dL (11.7-16.9); MCH 30.4 pg (25.7-33.7); MCHC 33.4 g/dl (32.0-35.9); MEAN CELL VOLUME 91.2 fl (80-96); MEAN PLT VOLUME 9.6 fl (7.5-11.1); PLATELET COUNT 133 10^3/uL (134-434); RBC 4.05 M/mm3 (4.00-5.60); RDW 14.5 % (11.9-15.9); WHITE BLOOD COUNT 3.7 K/mm3 (4.0-10.0)
[2021-10-16 12:06] LABS: CALCIUM 8.8 mg/dL (8.5-10.1)
[2021-10-16 12:07] LABS: ALBUMIN 3.3 g/dl (3.4-5.0); BLOOD UREA NITROGEN 16.3 mg/dL (7-18)
[2021-10-16 12:11] LABS: TOT PROT 6.6 g/dl (6.4-8.2)
[2021-10-16 12:12] LABS: BILIRUBIN,TOTAL 0.2 mg/dL (0.2-1)
[2021-10-16] MEDS: PRENATAL VITAMINS W/ FOLIC ACID TABLET (FP) PO SCH (12:39)
[2021-10-16] MEDS: NICOTINE 14 MG/24 HOURS TOPICAL PATCH TD SCH (12:42)
[2021-10-16] MEDS: MELATONIN 5 MG TABLETS PO SCH ×2 (12:44→22:30)
[2021-10-16] MEDS: THIAMINE HCL 100 MG TABLET (FP) PO SCH ×2 (12:44→22:30)
[2021-10-16] MEDS: IBUPROFEN 600 MG TABLET (FP) PO PRN (17:56)
[2021-10-16] MEDS: METHOCARBAMOL 500 MG TABLET PO PRN (22:32)
[2021-10-17] MEDS: chlordiazePOXIDE HCL 25 MG CAPSULE PO SCH ×4 (06:27→22:08)
[2021-10-17] MEDS: METHOCARBAMOL 500 MG TABLET PO PRN ×2 (06:29→22:11)
[2021-10-17] MEDS: IBUPROFEN 400 MG TABLET (FP) PO PRN (06:29)
[2021-10-17] MEDS: PRENATAL VITAMINS W/ FOLIC ACID TABLET (FP) PO SCH (10:41)
[2021-10-17] MEDS: NICOTINE 14 MG/24 HOURS TOPICAL PATCH TD SCH (10:42)
[2021-10-17] MEDS: IBUPROFEN 600 MG TABLET (FP) PO PRN (17:58)
[2021-10-17] MEDS: THIAMINE HCL 100 MG TABLET (FP) PO SCH (22:08)
[2021-10-17] MEDS: MELATONIN 5 MG TABLETS PO SCH (22:08)
[2021-10-17] MEDS: ACETAMINOPHEN 325 MG TABLET (FP) PO PRN (22:11)
[2021-10-18] MEDS ORDERED: chlordiazePOXIDE HCL 10 MG CAPSULE PO PRN
[2021-10-18] MEDS ORDERED: TRIMETHOBENZAMIDE HCL 200MG/2ML INJ IM ONE (01:35)
[2021-10-18] MEDS: chlordiazePOXIDE HCL 10 MG CAPSULE PO SCH ×4 (06:53→22:34)
[2021-10-18] MEDS: PRENATAL VITAMINS W/ FOLIC ACID TABLET (FP) PO SCH (10:11)
[2021-10-18] MEDS: NICOTINE 14 MG/24 HOURS TOPICAL PATCH TD SCH (10:11)
[2021-10-18] MEDS: IBUPROFEN 400 MG TABLET (FP) PO PRN (10:13)
[2021-10-18] MEDS: DIVALPROEX SODIUM 500 MG TABLET E.C. PO SCH (11:47)
[2021-10-18] MEDS: TAMSULOSIN HCL 0.4 MG CAP PO SCH (11:47)
[2021-10-18] MEDS: BRIMONIDINE TARTRATE 0.2% OPHTHALMIC 5 ML BOTTLE OU SCH ×2 (11:47→22:32)
[2021-10-18] MEDS: ASPIRIN 81 MG CHEWABLE TABLETS PO SCH (15:58)
[2021-10-18] MEDS: IBUPROFEN 600 MG TABLET (FP) PO PRN (17:58)
[2021-10-18] MEDS: PANTOPRAZOLE 40 MG TABLET PO SCH (19:39)
[2021-10-18] MEDS: LATANOPROST 0.005% OPHTH SOLN 2.5ML BOTTLE OU SCH (22:32)
[2021-10-18] MEDS: THIAMINE HCL 100 MG TABLET (FP) PO SCH (22:33)
[2021-10-18] MEDS: MELATONIN 5 MG TABLETS PO SCH (22:33)
[2021-10-18] MEDS: OLANZapine 10 MG TABLET PO SCH (22:33)
[2021-10-19] MEDS: chlordiazePOXIDE HCL 10 MG CAPSULE PO SCH ×2 (06:27→18:14)
[2021-10-19] MEDS: TAMSULOSIN HCL 0.4 MG CAP PO SCH (07:38)
[2021-10-19] MEDS: ASPIRIN 81 MG CHEWABLE TABLETS PO SCH (10:46)
[2021-10-19] MEDS: DIVALPROEX SODIUM 500 MG TABLET E.C. PO SCH (10:46)
[2021-10-19] MEDS: PANTOPRAZOLE 40 MG TABLET PO SCH (10:46)
[2021-10-19] MEDS: NICOTINE 14 MG/24 HOURS TOPICAL PATCH TD SCH (10:47)
[2021-10-19] MEDS: PRENATAL VITAMINS W/ FOLIC ACID TABLET (FP) PO SCH (10:47)
[2021-10-19] MEDS: BRIMONIDINE TARTRATE 0.2% OPHTHALMIC 5 ML BOTTLE OU SCH ×2 (10:48→22:19)
[2021-10-19] MEDS: IBUPROFEN 600 MG TABLET (FP) PO PRN (16:42)
[2021-10-19] MEDS: LATANOPROST 0.005% OPHTH SOLN 2.5ML BOTTLE OU SCH (22:19)
[2021-10-19] MEDS: THIAMINE HCL 100 MG TABLET (FP) PO SCH (22:20)
[2021-10-19] MEDS: OLANZapine 10 MG TABLET PO SCH (22:20)
[2021-10-19] MEDS: MELATONIN 5 MG TABLETS PO SCH (22:20)
[2021-10-19] MEDS: ACETAMINOPHEN 325 MG TABLET (FP) PO PRN (22:21)
[2021-10-19] MEDS: METHOCARBAMOL 500 MG TABLET PO PRN (22:23)
[2021-10-19] MEDS ORDERED: DIVALPROEX SODIUM 500 MG TABLET E.C. PO ONE (22:37)
[2021-10-20] MEDS ORDERED: chlordiazePOXIDE HCL 10 MG CAPSULE PO ONE (05:00)
[2021-10-20] MEDS: TAMSULOSIN HCL 0.4 MG CAP PO SCH (07:45)
[2021-10-20] MEDS: IBUPROFEN 600 MG TABLET (FP) PO PRN (08:53)
[2021-10-20] MEDS: PRENATAL VITAMINS W/ FOLIC ACID TABLET (FP) PO SCH (10:52)
[2021-10-20] MEDS: NICOTINE 14 MG/24 HOURS TOPICAL PATCH TD SCH (10:53)
[2021-10-20] MEDS: ASPIRIN 81 MG CHEWABLE TABLETS PO SCH (10:53)
[2021-10-20] MEDS: PANTOPRAZOLE 40 MG TABLET PO SCH (10:54)
[2021-10-20] MEDS: METHOCARBAMOL 500 MG TABLET PO PRN (10:57)
[2021-10-20] MEDS: ACETAMINOPHEN 325 MG TABLET (FP) PO PRN (10:57)
[2021-10-20] MEDS: BRIMONIDINE TARTRATE 0.2% OPHTHALMIC 5 ML BOTTLE OU SCH (11:06)
[2021-10-20] MEDS: DIVALPROEX SODIUM 500 MG TABLET E.C. PO SCH (11:08)
[2021-10-20 12:55] VITALS: BP 115/60; PULSE 75; TEMP 98.9
[2021-10-20] MEDS ORDERED: DIVALPROEX SODIUM 500 MG TABLET E.C. PO SCH (22:00)
== END 2021-10-20 19:16 | disposition home or self-care (01) | DRG 897 ==
LOC: YASAS 09:36 → Y3N 11:45
PROVIDERS: ADMIT Allergy & Immunology; ATTEND Surgery
PROC: HZ2ZZZZ Detoxification Services for Substance Abuse Treatment (ICD-10-PCS; principal; 2021-10-16)
DX: F10.230 Alcohol dependence with withdrawal, uncomplicated (principal); F14.20 Cocaine dependence, uncomplicated; F31.81 Bipolar II disorder; F17.210 Nicotine dependence, cigarettes, uncomplicated; F25.9 Schizoaffective disorder, unspecified; F60.89 Other specific personality disorders; F19.24 Other psychoactive substance dependence with psychoactive substance-induced mood disorder; H40.1130 Primary open-angle glaucoma, bilateral, stage unspecified; J45.909 Unspecified asthma, uncomplicated; K21.9 Gastro-esophageal reflux disease without esophagitis; N40.0 Benign prostatic hyperplasia without lower urinary tract symptoms; Z62.810 Personal history of physical and sexual abuse in childhood; Z91.011 Allergy to milk products; Z91.010 Allergy to peanuts; Z91.19 Patient's noncompliance with other medical treatment and regimen
CPT/HCPCS: 36415; 80053; 80164; 85027; 86780; 93005; 93010; C9803-CS; U0003; U0005

== ENCOUNTER 2021-12-26 09:44 | Inpatient (IN) | payer OTHER ==
[2021-12-26 11:26] VITALS: BMI 21.8
[2021-12-26] MEDS ORDERED: NICOTINE 10 MG CARTRIDGE (INHALER) IH PRN (12:35)
[2021-12-26] MEDS ORDERED: guaiFENesin 200 MG/10 ML 10 ML UNIT-DOSE CUPS PO PRN (12:35)
[2021-12-26] MEDS ORDERED: MAGNESIUM HYDROX 2400MG/30ML ORAL SUSPENSION 30 ML CUP PO PRN (12:35)
[2021-12-26] MEDS ORDERED: LOPERAMIDE HCL 2 MG CAPSULE PO PRN (12:35)
[2021-12-26] MEDS ORDERED: MAGNESIUM CITRATE 300 ML BOTTLE PO PRN (12:35)
[2021-12-26] MEDS ORDERED: P-EPHED 60MG/TRIPROLIDI 2.5MG TABLET PO PRN (12:35)
[2021-12-26 16:15] LABS: HEMOGLOBIN 12.8 GM/dL (11.7-16.9); MCH 30.4 pg (25.7-33.7); MCHC 32.9 g/dl (32.0-35.9); MEAN CELL VOLUME 92.5 fl (80-96); MEAN PLT VOLUME 10.4 fl (7.5-11.1); PLATELET COUNT 152 10^3/uL (134-434); RBC 4.21 M/mm3 (4.00-5.60); RDW 14.8 % (11.9-15.9)
[2021-12-26 16:22] LABS: CALCIUM 8.7 mg/dL (8.5-10.1)
[2021-12-26 16:23] LABS: ALBUMIN 3.6 g/dl (3.4-5.0); BLOOD UREA NITROGEN 15.9 mg/dL (7-18)
[2021-12-26 16:26] LABS: CREATININE 0.9 mg/dL (0.55-1.3)
[2021-12-26 16:27] LABS: BILIRUBIN,TOTAL 0.7 mg/dL (0.2-1); TOT PROT 7.1 g/dl (6.4-8.2)
[2021-12-26 16:49] LABS: SYPHILIS W/ RPR CONF NON-REACTIVE (NONREACTIVE)
[2021-12-26] MEDS: hydrOXYzine PAMOATE 25 MG CAPSULE (FP) PO SCH ×3 (17:00→22:14)
[2021-12-26] MEDS: IBUPROFEN 400 MG TABLET (FP) PO PRN (17:02)
[2021-12-26] MEDS: PRENATAL VITAMINS W/ FOLIC ACID TABLET (FP) PO SCH (17:03)
[2021-12-26] MEDS: MELATONIN 5 MG TABLETS PO SCH (22:14)
[2021-12-26] MEDS: THIAMINE HCL 100 MG TABLET (FP) PO SCH (22:14)
[2021-12-26] MEDS: BRIMONIDINE TARTRATE 0.2% OPHTHALMIC 5 ML BOTTLE OU SCH (22:32)
[2021-12-26] MEDS: PREGABALIN 100 MG CAPSULE PO SCH (22:32)
[2021-12-26] MEDS: DIVALPROEX SODIUM 500 MG TABLET E.C. PO SCH (22:32)
[2021-12-27] MEDS: hydrOXYzine PAMOATE 25 MG CAPSULE (FP) PO SCH (06:16)
[2021-12-27] MEDS: IBUPROFEN 400 MG TABLET (FP) PO PRN ×2 (06:17→16:48)
[2021-12-27] MEDS ORDERED: hydrOXYzine PAMOATE 25 MG CAPSULE (FP) PO PRN (09:25)
[2021-12-27] MEDS: PSYLLIUM 5.85 GM PACKET PO SCH (11:32)
[2021-12-27] MEDS: PREGABALIN 100 MG CAPSULE PO SCH ×2 (11:32→22:15)
[2021-12-27] MEDS: TAMSULOSIN HCL 0.4 MG CAP PO SCH (11:32)
[2021-12-27] MEDS: DIVALPROEX SODIUM 500 MG TABLET E.C. PO SCH ×2 (11:32→22:15)
[2021-12-27] MEDS: NICOTINE 14 MG/24 HOURS TOPICAL PATCH TD SCH (11:32)
[2021-12-27] MEDS: PRENATAL VITAMINS W/ FOLIC ACID TABLET (FP) PO SCH (11:33)
[2021-12-27] MEDS: BRIMONIDINE TARTRATE 0.2% OPHTHALMIC 5 ML BOTTLE OU SCH ×2 (11:33→22:17)
[2021-12-27] MEDS: MAG HYDROX/AL HYDROX/SIMETH 30 ML UNIT-DOSE CUP PO PRN (15:10)
[2021-12-27] MEDS: PANTOPRAZOLE 20 MG TABLET PO SCH ×2 (15:11→22:15)
[2021-12-27] MEDS ORDERED: PANTOPRAZOLE 20 MG TABLET PO SCH (15:15)
[2021-12-27 15:36] LABS: PH,URINE 6.5 (5.0-8.0); URINE APPEARANCE CLEAR; URINE BILIRUBIN NEGATIVE (NEGATIVE); URINE COLOR YELLOW; URINE GLUCOSE (UA) NEGATIVE (NEGATIVE); URINE KETONE NEGATIVE (NEGATIVE); URINE LEUK ESTERASE NEGATIVE (NEGATIVE); URINE NITRITE NEGATIVE (NEGATIVE); URINE PROTEIN NEGATIVE (NEGATIVE); URINE UROBILINOGEN 0.2 mg/dL (0.2-1.0)
[2021-12-27] MEDS: ACETAMINOPHEN 325 MG TABLET (FP) PO SCH ×2 (15:47→22:23)
[2021-12-27] MEDS: ACETAMINOPHEN 325 MG TABLET (FP) PO PRN (16:48)
[2021-12-27] MEDS ORDERED: ALBUTEROL SO4 HFA INHALER IH PRN (22:13)
[2021-12-27] MEDS: THIAMINE HCL 100 MG TABLET (FP) PO SCH (22:15)
[2021-12-27] MEDS: MELATONIN 5 MG TABLETS PO SCH (22:15)
[2021-12-27] MEDS: OLANZapine 10 MG TABLET PO SCH (22:15)
[2021-12-27] MEDS: traZODone HCL 50 MG TABLET (FP) PO SCH (22:17)
[2021-12-28] MEDS: ACETAMINOPHEN 325 MG TABLET (FP) PO SCH ×2 (03:30→09:50)
[2021-12-28] MEDS: BRIMONIDINE TARTRATE 0.2% OPHTHALMIC 5 ML BOTTLE OU SCH ×2 (09:50→21:20)
[2021-12-28] MEDS: DIVALPROEX SODIUM 500 MG TABLET E.C. PO SCH ×2 (09:51→21:21)
[2021-12-28] MEDS: PSYLLIUM 5.85 GM PACKET PO SCH (09:52)
[2021-12-28] MEDS: PRENATAL VITAMINS W/ FOLIC ACID TABLET (FP) PO SCH (09:52)
[2021-12-28] MEDS: NICOTINE 14 MG/24 HOURS TOPICAL PATCH TD SCH (09:52)
[2021-12-28] MEDS: TAMSULOSIN HCL 0.4 MG CAP PO SCH (09:52)
[2021-12-28] MEDS: PANTOPRAZOLE 20 MG TABLET PO SCH ×2 (09:53→21:20)
[2021-12-28] MEDS: PREGABALIN 100 MG CAPSULE PO SCH ×2 (10:09→21:21)
[2021-12-28] MEDS ORDERED: ACETAMINOPHEN 325 MG TABLET (FP) PO PRN (11:31)
[2021-12-28 11:40] LABS: HIV INTERPRETATION NEGATIVE (NEGATIVE)
[2021-12-28] MEDS: IBUPROFEN 400 MG TABLET (FP) PO PRN (19:37)
[2021-12-28] MEDS: THIAMINE HCL 100 MG TABLET (FP) PO SCH (21:20)
[2021-12-28] MEDS: MELATONIN 5 MG TABLETS PO SCH (21:20)
[2021-12-28] MEDS: OLANZapine 10 MG TABLET PO SCH (21:20)
[2021-12-28] MEDS: ACETAMINOPHEN 325 MG TABLET (FP) PO PRN ×2 (21:21→22:53)
[2021-12-28] MEDS: traZODone HCL 50 MG TABLET (FP) PO SCH (21:21)
[2021-12-29] MEDS: DIVALPROEX SODIUM 500 MG TABLET E.C. PO SCH ×2 (09:48→21:33)
[2021-12-29] MEDS: TAMSULOSIN HCL 0.4 MG CAP PO SCH (09:48)
[2021-12-29] MEDS: BRIMONIDINE TARTRATE 0.2% OPHTHALMIC 5 ML BOTTLE OU SCH ×2 (09:48→21:33)
[2021-12-29] MEDS: PANTOPRAZOLE 20 MG TABLET PO SCH ×2 (09:49→21:33)
[2021-12-29] MEDS: PREGABALIN 100 MG CAPSULE PO SCH ×2 (09:49→21:33)
[2021-12-29] MEDS: NICOTINE 14 MG/24 HOURS TOPICAL PATCH TD SCH (09:49)
[2021-12-29] MEDS: PRENATAL VITAMINS W/ FOLIC ACID TABLET (FP) PO SCH (09:49)
[2021-12-29] MEDS: IBUPROFEN 400 MG TABLET (FP) PO PRN ×2 (09:50→16:54)
[2021-12-29] MEDS: PSYLLIUM 5.85 GM PACKET PO SCH (09:50)
[2021-12-29] MEDS: ACYCLOVIR 200 MG CAPSULE PO SCH (14:25)
[2021-12-29] MEDS: hydrOXYzine PAMOATE 25 MG CAPSULE (FP) PO PRN ×2 (14:26→21:36)
[2021-12-29] MEDS: ACETAMINOPHEN 325 MG TABLET (FP) PO PRN (16:54)
[2021-12-29] MEDS: LATANOPROST 0.005% OPHTH SOLN 2.5ML BOTTLE OU SCH (21:33)
[2021-12-29] MEDS: MELATONIN 5 MG TABLETS PO SCH (21:33)
[2021-12-29] MEDS: THIAMINE HCL 100 MG TABLET (FP) PO SCH (21:33)
[2021-12-29] MEDS: traZODone HCL 50 MG TABLET (FP) PO SCH (21:34)
[2021-12-29] MEDS: OLANZapine 10 MG TABLET PO SCH (21:34)
[2021-12-30] MEDS: PRENATAL VITAMINS W/ FOLIC ACID TABLET (FP) PO SCH (09:54)
[2021-12-30] MEDS: PANTOPRAZOLE 20 MG TABLET PO SCH ×2 (09:54→21:10)
[2021-12-30] MEDS: PREGABALIN 100 MG CAPSULE PO SCH ×2 (09:54→21:10)
[2021-12-30] MEDS: BRIMONIDINE TARTRATE 0.2% OPHTHALMIC 5 ML BOTTLE OU SCH ×2 (09:54→21:10)
[2021-12-30] MEDS: PSYLLIUM 5.85 GM PACKET PO SCH (09:55)
[2021-12-30] MEDS: TAMSULOSIN HCL 0.4 MG CAP PO SCH (09:55)
[2021-12-30] MEDS: DIVALPROEX SODIUM 500 MG TABLET E.C. PO SCH ×2 (09:55→21:10)
[2021-12-30] MEDS: ACYCLOVIR 200 MG CAPSULE PO SCH (09:55)
[2021-12-30] MEDS: NICOTINE 14 MG/24 HOURS TOPICAL PATCH TD SCH (09:55)
[2021-12-30] MEDS: ACETAMINOPHEN 325 MG TABLET (FP) PO PRN ×2 (09:57→17:46)
[2021-12-30] MEDS: IBUPROFEN 400 MG TABLET (FP) PO PRN ×2 (09:58→17:47)
[2021-12-30] MEDS: traZODone HCL 50 MG TABLET (FP) PO SCH (21:10)
[2021-12-30] MEDS: THIAMINE HCL 100 MG TABLET (FP) PO SCH (21:10)
[2021-12-30] MEDS: hydrOXYzine PAMOATE 25 MG CAPSULE (FP) PO PRN (21:10)
[2021-12-30] MEDS: OLANZapine 10 MG TABLET PO SCH (21:10)
[2021-12-30] MEDS: LATANOPROST 0.005% OPHTH SOLN 2.5ML BOTTLE OU SCH (21:10)
[2021-12-30] MEDS: MELATONIN 5 MG TABLETS PO SCH (21:11)
[2021-12-30] MEDS: MAG HYDROX/AL HYDROX/SIMETH 30 ML UNIT-DOSE CUP PO PRN (21:11)
[2021-12-31] MEDS: DIVALPROEX SODIUM 500 MG TABLET E.C. PO SCH ×2 (09:44→22:06)
[2021-12-31] MEDS: PRENATAL VITAMINS W/ FOLIC ACID TABLET (FP) PO SCH (09:44)
[2021-12-31] MEDS: ACYCLOVIR 200 MG CAPSULE PO SCH (09:44)
[2021-12-31] MEDS: TAMSULOSIN HCL 0.4 MG CAP PO SCH (09:45)
[2021-12-31] MEDS: BRIMONIDINE TARTRATE 0.2% OPHTHALMIC 5 ML BOTTLE OU SCH ×2 (09:45→22:08)
[2021-12-31] MEDS: PANTOPRAZOLE 20 MG TABLET PO SCH ×2 (09:45→22:06)
[2021-12-31] MEDS: PREGABALIN 100 MG CAPSULE PO SCH ×2 (09:45→22:06)
[2021-12-31] MEDS: PSYLLIUM 5.85 GM PACKET PO SCH (09:46)
[2021-12-31] MEDS: NICOTINE 14 MG/24 HOURS TOPICAL PATCH TD SCH (09:46)
[2021-12-31] MEDS: hydrOXYzine PAMOATE 25 MG CAPSULE (FP) PO PRN ×2 (09:47→22:06)
[2021-12-31] MEDS: IBUPROFEN 400 MG TABLET (FP) PO PRN (09:47)
[2021-12-31] MEDS: ACETAMINOPHEN 325 MG TABLET (FP) PO PRN (09:48)
[2021-12-31] MEDS: MELATONIN 5 MG TABLETS PO SCH (22:05)
[2021-12-31] MEDS: traZODone HCL 50 MG TABLET (FP) PO SCH (22:06)
[2021-12-31] MEDS: THIAMINE HCL 100 MG TABLET (FP) PO SCH (22:06)
[2021-12-31] MEDS: OLANZapine 10 MG TABLET PO SCH (22:06)
[2021-12-31] MEDS: LATANOPROST 0.005% OPHTH SOLN 2.5ML BOTTLE OU SCH (22:08)
[2022-01-01] MEDS: DIVALPROEX SODIUM 500 MG TABLET E.C. PO SCH ×2 (09:37→21:42)
[2022-01-01] MEDS: BRIMONIDINE TARTRATE 0.2% OPHTHALMIC 5 ML BOTTLE OU SCH ×2 (09:37→22:07)
[2022-01-01] MEDS: NICOTINE 14 MG/24 HOURS TOPICAL PATCH TD SCH (09:37)
[2022-01-01] MEDS: PSYLLIUM 5.85 GM PACKET PO SCH (09:37)
[2022-01-01] MEDS: PREGABALIN 100 MG CAPSULE PO SCH ×2 (09:38→21:43)
[2022-01-01] MEDS: PRENATAL VITAMINS W/ FOLIC ACID TABLET (FP) PO SCH (09:38)
[2022-01-01] MEDS: ACYCLOVIR 200 MG CAPSULE PO SCH (09:38)
[2022-01-01] MEDS: PANTOPRAZOLE 20 MG TABLET PO SCH ×2 (09:38→21:43)
[2022-01-01] MEDS: TAMSULOSIN HCL 0.4 MG CAP PO SCH (09:38)
[2022-01-01] MEDS: ACETAMINOPHEN 325 MG TABLET (FP) PO PRN ×2 (09:39→21:44)
[2022-01-01] MEDS: IBUPROFEN 400 MG TABLET (FP) PO PRN ×2 (09:39→21:44)
[2022-01-01] MEDS: hydrOXYzine PAMOATE 25 MG CAPSULE (FP) PO PRN ×2 (09:41→21:43)
[2022-01-01] MEDS: METHYL SALICYLATE/MENTHOL OINT 30 GM TUBE TP SCH (15:49)
[2022-01-01] MEDS: OLANZapine 10 MG TABLET PO SCH (21:43)
[2022-01-01] MEDS: THIAMINE HCL 100 MG TABLET (FP) PO SCH (21:43)
[2022-01-01] MEDS: traZODone HCL 50 MG TABLET (FP) PO SCH (21:43)
[2022-01-01] MEDS: LATANOPROST 0.005% OPHTH SOLN 2.5ML BOTTLE OU SCH (21:43)
[2022-01-01] MEDS: MELATONIN 5 MG TABLETS PO SCH (21:43)
[2022-01-02] MEDS: TAMSULOSIN HCL 0.4 MG CAP PO SCH (09:48)
[2022-01-02] MEDS: METHYL SALICYLATE/MENTHOL OINT 30 GM TUBE TP SCH (09:48)
[2022-01-02] MEDS: PSYLLIUM 5.85 GM PACKET PO SCH (09:48)
[2022-01-02] MEDS: ACYCLOVIR 200 MG CAPSULE PO SCH (09:48)
[2022-01-02] MEDS: PRENATAL VITAMINS W/ FOLIC ACID TABLET (FP) PO SCH (09:48)
[2022-01-02] MEDS: PREGABALIN 100 MG CAPSULE PO SCH ×2 (09:48→21:38)
[2022-01-02] MEDS: PANTOPRAZOLE 20 MG TABLET PO SCH ×2 (09:48→21:35)
[2022-01-02] MEDS: DIVALPROEX SODIUM 500 MG TABLET E.C. PO SCH ×2 (09:48→21:35)
[2022-01-02] MEDS: NICOTINE 14 MG/24 HOURS TOPICAL PATCH TD SCH (09:49)
[2022-01-02] MEDS: BRIMONIDINE TARTRATE 0.2% OPHTHALMIC 5 ML BOTTLE OU SCH ×2 (09:50→21:38)
[2022-01-02] MEDS: IBUPROFEN 400 MG TABLET (FP) PO PRN ×2 (10:16→21:35)
[2022-01-02] MEDS: ACETAMINOPHEN 325 MG TABLET (FP) PO PRN ×2 (10:16→21:36)
[2022-01-02] MEDS: hydrOXYzine PAMOATE 25 MG CAPSULE (FP) PO PRN ×2 (10:18→21:35)
[2022-01-02] MEDS: BACLOFEN 10 MG TABLET (FP) PO SCH ×2 (14:44→21:34)
[2022-01-02] MEDS: OLANZapine 10 MG TABLET PO SCH (21:35)
[2022-01-02] MEDS: LATANOPROST 0.005% OPHTH SOLN 2.5ML BOTTLE OU SCH (21:35)
[2022-01-02] MEDS: traZODone HCL 50 MG TABLET (FP) PO SCH (21:35)
[2022-01-02] MEDS: MELATONIN 5 MG TABLETS PO SCH (21:37)
[2022-01-02] MEDS: THIAMINE HCL 100 MG TABLET (FP) PO SCH (21:39)
[2022-01-03] MEDS: BACLOFEN 10 MG TABLET (FP) PO SCH ×3 (07:04→21:20)
[2022-01-03] MEDS: METHYL SALICYLATE/MENTHOL OINT 30 GM TUBE TP SCH (09:34)
[2022-01-03] MEDS: BRIMONIDINE TARTRATE 0.2% OPHTHALMIC 5 ML BOTTLE OU SCH ×2 (09:34→21:19)
[2022-01-03] MEDS: PREGABALIN 100 MG CAPSULE PO SCH ×2 (09:35→21:20)
[2022-01-03] MEDS: PSYLLIUM 5.85 GM PACKET PO SCH (09:35)
[2022-01-03] MEDS: DIVALPROEX SODIUM 500 MG TABLET E.C. PO SCH ×2 (09:35→21:20)
[2022-01-03] MEDS: TAMSULOSIN HCL 0.4 MG CAP PO SCH (09:35)
[2022-01-03] MEDS: PRENATAL VITAMINS W/ FOLIC ACID TABLET (FP) PO SCH (09:36)
[2022-01-03] MEDS: PANTOPRAZOLE 20 MG TABLET PO SCH ×2 (09:36→21:20)
[2022-01-03] MEDS: ACYCLOVIR 200 MG CAPSULE PO SCH (09:36)
[2022-01-03] MEDS: NICOTINE 14 MG/24 HOURS TOPICAL PATCH TD SCH (09:36)
[2022-01-03] MEDS: hydrOXYzine PAMOATE 25 MG CAPSULE (FP) PO PRN ×2 (09:38→21:20)
[2022-01-03] MEDS: IBUPROFEN 400 MG TABLET (FP) PO PRN ×2 (09:39→21:22)
[2022-01-03] MEDS: ACETAMINOPHEN 325 MG TABLET (FP) PO PRN ×2 (09:39→21:21)
[2022-01-03] MEDS: THIAMINE HCL 100 MG TABLET (FP) PO SCH (21:19)
[2022-01-03] MEDS: LATANOPROST 0.005% OPHTH SOLN 2.5ML BOTTLE OU SCH (21:19)
[2022-01-03] MEDS: MELATONIN 5 MG TABLETS PO SCH (21:19)
[2022-01-03] MEDS: OLANZapine 10 MG TABLET PO SCH (21:20)
[2022-01-03] MEDS: traZODone HCL 50 MG TABLET (FP) PO SCH (21:20)
[2022-01-04] MEDS: BACLOFEN 10 MG TABLET (FP) PO SCH ×3 (06:22→21:17)
[2022-01-04] MEDS: hydrOXYzine PAMOATE 25 MG CAPSULE (FP) PO PRN ×2 (06:23→21:17)
[2022-01-04] MEDS: IBUPROFEN 400 MG TABLET (FP) PO PRN ×2 (06:23→21:17)
[2022-01-04] MEDS: ACETAMINOPHEN 325 MG TABLET (FP) PO PRN ×2 (06:24→21:17)
[2022-01-04] MEDS: PSYLLIUM 5.85 GM PACKET PO SCH (09:58)
[2022-01-04] MEDS: BRIMONIDINE TARTRATE 0.2% OPHTHALMIC 5 ML BOTTLE OU SCH ×2 (09:58→21:16)
[2022-01-04] MEDS: ACYCLOVIR 200 MG CAPSULE PO SCH (09:59)
[2022-01-04] MEDS: TAMSULOSIN HCL 0.4 MG CAP PO SCH (10:00)
[2022-01-04] MEDS: PREGABALIN 100 MG CAPSULE PO SCH ×2 (10:00→21:17)
[2022-01-04] MEDS: PANTOPRAZOLE 20 MG TABLET PO SCH ×2 (10:00→21:17)
[2022-01-04] MEDS: DIVALPROEX SODIUM 500 MG TABLET E.C. PO SCH ×2 (10:00→21:16)
[2022-01-04] MEDS: METHYL SALICYLATE/MENTHOL OINT 30 GM TUBE TP SCH (10:01)
[2022-01-04] MEDS: PRENATAL VITAMINS W/ FOLIC ACID TABLET (FP) PO SCH (10:01)
[2022-01-04] MEDS: NICOTINE 14 MG/24 HOURS TOPICAL PATCH TD SCH (10:01)
[2022-01-04] MEDS: LATANOPROST 0.005% OPHTH SOLN 2.5ML BOTTLE OU SCH (21:16)
[2022-01-04] MEDS: traZODone HCL 50 MG TABLET (FP) PO SCH (21:17)
[2022-01-04] MEDS: OLANZapine 10 MG TABLET PO SCH (21:17)
[2022-01-04] MEDS: MELATONIN 5 MG TABLETS PO SCH (21:19)
[2022-01-04] MEDS: THIAMINE HCL 100 MG TABLET (FP) PO SCH (21:19)
[2022-01-05] MEDS: MAG HYDROX/AL HYDROX/SIMETH 30 ML UNIT-DOSE CUP PO PRN (01:56)
[2022-01-05] MEDS: IBUPROFEN 400 MG TABLET (FP) PO PRN ×3 (04:23→17:45)
[2022-01-05] MEDS: hydrOXYzine PAMOATE 25 MG CAPSULE (FP) PO PRN ×3 (04:23→18:47)
[2022-01-05] MEDS: ACETAMINOPHEN 325 MG TABLET (FP) PO PRN ×3 (04:26→17:46)
[2022-01-05] MEDS: BACLOFEN 10 MG TABLET (FP) PO SCH ×3 (06:33→21:12)
[2022-01-05] MEDS: BRIMONIDINE TARTRATE 0.2% OPHTHALMIC 5 ML BOTTLE OU SCH ×2 (10:01→21:11)
[2022-01-05] MEDS: PSYLLIUM 5.85 GM PACKET PO SCH (10:01)
[2022-01-05] MEDS: ACYCLOVIR 200 MG CAPSULE PO SCH (10:01)
[2022-01-05] MEDS: DIVALPROEX SODIUM 500 MG TABLET E.C. PO SCH ×2 (10:02→21:12)
[2022-01-05] MEDS: PANTOPRAZOLE 20 MG TABLET PO SCH ×2 (10:02→21:12)
[2022-01-05] MEDS: PRENATAL VITAMINS W/ FOLIC ACID TABLET (FP) PO SCH (10:03)
[2022-01-05] MEDS: PREGABALIN 100 MG CAPSULE PO SCH ×2 (10:03→21:12)
[2022-01-05] MEDS: METHYL SALICYLATE/MENTHOL OINT 30 GM TUBE TP SCH (10:03)
[2022-01-05] MEDS: TAMSULOSIN HCL 0.4 MG CAP PO SCH (10:03)
[2022-01-05] MEDS: NICOTINE 14 MG/24 HOURS TOPICAL PATCH TD SCH (10:04)
[2022-01-05] MEDS: LATANOPROST 0.005% OPHTH SOLN 2.5ML BOTTLE OU SCH (21:11)
[2022-01-05] MEDS: MELATONIN 5 MG TABLETS PO SCH (21:12)
[2022-01-05] MEDS: traZODone HCL 50 MG TABLET (FP) PO SCH (21:12)
[2022-01-05] MEDS: OLANZapine 10 MG TABLET PO SCH (21:12)
[2022-01-05] MEDS: THIAMINE HCL 100 MG TABLET (FP) PO SCH (21:13)
[2022-01-06] MEDS: BACLOFEN 10 MG TABLET (FP) PO SCH ×2 (06:32→14:00)
[2022-01-06] MEDS: IBUPROFEN 400 MG TABLET (FP) PO PRN (06:34)
[2022-01-06] MEDS: ACETAMINOPHEN 325 MG TABLET (FP) PO PRN (06:35)
[2022-01-06] MEDS: hydrOXYzine PAMOATE 25 MG CAPSULE (FP) PO PRN (09:30)
[2022-01-06] MEDS: DIVALPROEX SODIUM 500 MG TABLET E.C. PO SCH (09:31)
[2022-01-06] MEDS: PREGABALIN 100 MG CAPSULE PO SCH (09:31)
[2022-01-06] MEDS: PANTOPRAZOLE 20 MG TABLET PO SCH (09:31)
[2022-01-06] MEDS: TAMSULOSIN HCL 0.4 MG CAP PO SCH (09:31)
[2022-01-06] MEDS: METHYL SALICYLATE/MENTHOL OINT 30 GM TUBE TP SCH (09:32)
[2022-01-06] MEDS: BRIMONIDINE TARTRATE 0.2% OPHTHALMIC 5 ML BOTTLE OU SCH (09:32)
[2022-01-06] MEDS: NICOTINE 14 MG/24 HOURS TOPICAL PATCH TD SCH (09:33)
[2022-01-06] MEDS: PRENATAL VITAMINS W/ FOLIC ACID TABLET (FP) PO SCH (09:33)
[2022-01-06] MEDS: PSYLLIUM 5.85 GM PACKET PO SCH (09:33)
[2022-01-06 10:40] VITALS: BP 118/76; PULSE 95; RESP 18; TEMP 97.3
== END 2022-01-07 00:14 | disposition home or self-care (01) | DRG 895 ==
LOC: YASAS 09:44 → Y3E 16:01
PROVIDERS: ADMIT Allergy & Immunology; ATTEND Psychiatry & Neurology Pain Medicine
PROC: HZ42ZZZ Group Counseling for Substance Abuse Treatment, Cognitive-Behavioral (ICD-10-PCS; principal; 2021-12-26)
DX: F10.20 Alcohol dependence, uncomplicated (principal); F14.20 Cocaine dependence, uncomplicated; F12.20 Cannabis dependence, uncomplicated; F17.210 Nicotine dependence, cigarettes, uncomplicated; F43.10 Post-traumatic stress disorder, unspecified; F25.9 Schizoaffective disorder, unspecified; F31.9 Bipolar disorder, unspecified; I10 Essential (primary) hypertension; E78.5 Hyperlipidemia, unspecified; J45.909 Unspecified asthma, uncomplicated; K21.9 Gastro-esophageal reflux disease without esophagitis; K58.9 Irritable bowel syndrome, unspecified; M19.032 Primary osteoarthritis, left wrist; G56.03 Carpal tunnel syndrome, bilateral upper limbs; R22.42 Localized swelling, mass and lump, left lower limb; M79.601 Pain in right arm; H40.9 Unspecified glaucoma; R01.1 Cardiac murmur, unspecified; N40.0 Benign prostatic hyperplasia without lower urinary tract symptoms; Z62.810 Personal history of physical and sexual abuse in childhood; Z86.69 Personal history of other diseases of the nervous system and sense organs; Z86.711 Personal history of pulmonary embolism; Z91.010 Allergy to peanuts; Z91.011 Allergy to milk products; Z91.51 Personal history of suicidal behavior; Z56.0 Unemployment, unspecified
CPT/HCPCS: 36415; 80053; 80164; 81003; 85027; 86780; 86803; 87389; C9803-CS; J0475; U0003; U0005

== ENCOUNTER 2022-01-06 11:41 | Emergency (ER) | payer OTHER ==
[2022-01-06 11:49] VITALS: BP 128/74; PULSE 88; RESP 18; TEMP 97.8; BMI 28.2
[2022-01-06] MEDS ORDERED: KETOROLAC TROMETHAMINE 30 MG/1 ML VIAL IM ONE (13:10)
[2022-01-06] MEDS ORDERED: KETOROLAC TROMETHAMINE 30 MG/1 ML VIAL ONE (13:12)
== END 2022-01-06 13:15 | disposition left against medical advice (07) ==
LOC: JER 11:41
PROC: 3E0233Z Introduction of Anti-inflammatory into Muscle, Percutaneous Approach (ICD-10-PCS; principal; 2022-01-06)
DX: R22.41 Localized swelling, mass and lump, right lower limb (principal); R22.42 Localized swelling, mass and lump, left lower limb
CPT/HCPCS: 96372; 99284-25

== ENCOUNTER 2023-04-16 13:24 | Inpatient (IN) | payer OTHER ==
[2023-04-16 14:10] VITALS: BMI 28.5
[2023-04-16] MEDS ORDERED: BENZOCAINE/MENTHOL (CHLORASEPTIC ) LOZENGE MM PRN (19:00)
[2023-04-16] MEDS ORDERED: COLLOIDAL OATMEAL 1 BAR EACH TP PRN (19:00)
[2023-04-16] MEDS ORDERED: BENZONATATE 200 MG CAPSULE PO PRN (19:00)
[2023-04-16] MEDS ORDERED: LOPERAMIDE HCL 2 MG CAPSULE PO PRN (19:00)
[2023-04-16] MEDS ORDERED: P-EPHED 60MG/TRIPROLIDI 2.5MG TABLET PO PRN (19:00)
[2023-04-16] MEDS ORDERED: NICOTINE POLACRILEX 2 MG GUM BUC PRN (19:00)
[2023-04-16] MEDS ORDERED: POLYETHYLENE GLYCOL (HEALTHYLAX) 3350 17 GM PACKET PO PRN (19:00)
[2023-04-16] MEDS ORDERED: guaiFENesin 600 MG TABLET.ER (FP) PO PRN (19:00)
[2023-04-16] MEDS ORDERED: MAGNESIUM HYDROX 2400MG/30ML ORAL SUSPENSION 30 ML CUP PO PRN (19:00)
[2023-04-16] MEDS ORDERED: MAG HYDROX/AL HYDROX/SIMETH 30 ML UNIT-DOSE CUP PO PRN (19:00)
[2023-04-16] MEDS: THIAMINE HCL 100 MG TABLET (FP) PO SCH (23:16)
[2023-04-16] MEDS: hydrOXYzine PAMOATE 25 MG CAPSULE (FP) PO PRN (23:16)
[2023-04-16] MEDS: MELATONIN 5 MG TABLETS PO SCH (23:16)
[2023-04-16] MEDS: NAPROXEN 500 MG TABLET PO SCH (23:20)
[2023-04-16] MEDS: LATANOPROST 0.005% OPHTH SOLN 2.5ML BOTTLE OU SCH (23:58)
[2023-04-16] MEDS: BRIMONIDINE TARTRATE 0.2% OPHTHALMIC 5 ML BOTTLE OU SCH (23:58)
[2023-04-17] MEDS: ACETAMINOPHEN 325 MG TABLET (FP) PO PRN (06:21)
[2023-04-17] MEDS: BRIMONIDINE TARTRATE 0.2% OPHTHALMIC 5 ML BOTTLE OU SCH ×2 (09:52→21:29)
[2023-04-17] MEDS: NAPROXEN 500 MG TABLET PO SCH ×2 (09:53→21:30)
[2023-04-17] MEDS: TAMSULOSIN HCL 0.4 MG CAP PO SCH (09:53)
[2023-04-17] MEDS: LIDOCAINE 4% PATCH TP SCH (09:53)
[2023-04-17] MEDS: PANTOPRAZOLE 20 MG TABLET PO SCH (09:53)
[2023-04-17] MEDS: PRENATAL VITAMINS W/ FOLIC ACID TABLET (FP) PO SCH (09:53)
[2023-04-17 10:26] LABS: PH,URINE 6.5 (5.0-8.0); URINE APPEARANCE CLEAR; URINE BILIRUBIN NEGATIVE (NEGATIVE); URINE COLOR YELLOW; URINE GLUCOSE (UA) NEGATIVE (NEGATIVE); URINE KETONE TRACE (NEGATIVE); URINE LEUK ESTERASE NEGATIVE (NEGATIVE); URINE NITRITE NEGATIVE (NEGATIVE); URINE PROTEIN NEGATIVE (NEGATIVE)
[2023-04-17] MEDS: DIVALPROEX SODIUM 500 MG TABLET E.C. PO SCH ×2 (10:29→21:30)
[2023-04-17 10:33] LABS: HEMATOCRIT 40.8 % (35.4-49); HEMOGLOBIN 13.8 GM/dL (11.7-16.9); MCH 30.2 pg (25.7-33.7); MCHC 33.7 g/dl (32.0-35.9); MEAN CELL VOLUME 89.5 fl (80-96); MEAN PLT VOLUME 9.4 fl (7.5-11.1); PLATELET COUNT 152 10^3/uL (134-434); RBC 4.56 M/mm3 (4.00-5.60); RDW 14.8 % (11.9-15.9); WHITE BLOOD COUNT 4.1 K/mm3 (4.0-10.0)
[2023-04-17] MEDS: AMMONIUM LACTATE 12% LOTION 225 GM BOTTLE TP PRN (10:45)
[2023-04-17 11:00] LABS: POTASSIUM 3.8 mmol/L (3.5-5.1)
[2023-04-17 11:06] LABS: CALCIUM 8.5 mg/dL (8.5-10.1)
[2023-04-17 11:07] LABS: BLOOD UREA NITROGEN 26.3 mg/dL (7-18)
[2023-04-17 11:09] LABS: ALBUMIN 3.5 g/dl (3.4-5.0); CREATININE 0.9 mg/dL (0.55-1.3)
[2023-04-17 11:11] LABS: BILIRUBIN,TOTAL 0.4 mg/dL (0.2-1); TOT PROT 7.3 g/dl (6.4-8.2)
[2023-04-17] MEDS: LATANOPROST 0.005% OPHTH SOLN 2.5ML BOTTLE OU SCH (21:27)
[2023-04-17] MEDS: THIAMINE HCL 100 MG TABLET (FP) PO SCH (21:30)
[2023-04-17] MEDS: MELATONIN 5 MG TABLETS PO SCH (21:30)
[2023-04-17] MEDS: OLANZapine 10 MG TABLET PO SCH (21:31)
[2023-04-18] MEDS: LIDOCAINE 4% PATCH TP SCH (09:37)
[2023-04-18] MEDS: BRIMONIDINE TARTRATE 0.2% OPHTHALMIC 5 ML BOTTLE OU SCH ×2 (09:38→21:07)
[2023-04-18] MEDS: TAMSULOSIN HCL 0.4 MG CAP PO SCH (09:38)
[2023-04-18] MEDS: PANTOPRAZOLE 20 MG TABLET PO SCH (09:38)
[2023-04-18] MEDS: PRENATAL VITAMINS W/ FOLIC ACID TABLET (FP) PO SCH (09:38)
[2023-04-18] MEDS: DIVALPROEX SODIUM 500 MG TABLET E.C. PO SCH ×2 (09:38→21:07)
[2023-04-18] MEDS: NAPROXEN 500 MG TABLET PO SCH ×2 (09:38→21:07)
[2023-04-18] MEDS: ARTIFICIAL TEARS OPHTHALMIC DROPS OU PRN ×2 (09:39→21:07)
[2023-04-18] MEDS: MELATONIN 5 MG TABLETS PO SCH (21:05)
[2023-04-18] MEDS: THIAMINE HCL 100 MG TABLET (FP) PO SCH (21:05)
[2023-04-18] MEDS: DOCUSATE SODIUM 100 MG CAPSULE (FP) PO PRN (21:07)
[2023-04-18] MEDS: OLANZapine 10 MG TABLET PO SCH (21:07)
[2023-04-18] MEDS: hydrOXYzine PAMOATE 25 MG CAPSULE (FP) PO PRN (21:07)
[2023-04-18] MEDS: LATANOPROST 0.005% OPHTH SOLN 2.5ML BOTTLE OU SCH (21:08)
[2023-04-19] MEDS: NAPROXEN 500 MG TABLET PO SCH ×2 (09:38→21:34)
[2023-04-19] MEDS: PANTOPRAZOLE 20 MG TABLET PO SCH (09:38)
[2023-04-19] MEDS: BRIMONIDINE TARTRATE 0.2% OPHTHALMIC 5 ML BOTTLE OU SCH ×3 (09:38→21:42)
[2023-04-19] MEDS: PRENATAL VITAMINS W/ FOLIC ACID TABLET (FP) PO SCH (09:38)
[2023-04-19] MEDS: DIVALPROEX SODIUM 500 MG TABLET E.C. PO SCH ×2 (09:38→21:34)
[2023-04-19] MEDS: TAMSULOSIN HCL 0.4 MG CAP PO SCH (09:38)
[2023-04-19] MEDS: LIDOCAINE 4% PATCH TP SCH (09:39)
[2023-04-19] MEDS: ACETAMINOPHEN 325 MG TABLET (FP) PO PRN (13:05)
[2023-04-19] MEDS: AMMONIUM LACTATE 12% LOTION 225 GM BOTTLE TP PRN (15:28)
[2023-04-19 20:08] LABS: HIV INTERPRETATION NEGATIVE (NEGATIVE)
[2023-04-19] MEDS: ARTIFICIAL TEARS OPHTHALMIC DROPS OU PRN (21:33)
[2023-04-19] MEDS: MELATONIN 5 MG TABLETS PO SCH (21:34)
[2023-04-19] MEDS: OLANZapine 10 MG TABLET PO SCH (21:34)
[2023-04-19] MEDS: THIAMINE HCL 100 MG TABLET (FP) PO SCH (21:34)
[2023-04-19] MEDS: LATANOPROST 0.005% OPHTH SOLN 2.5ML BOTTLE OU SCH (21:48)
[2023-04-19] MEDS: hydrOXYzine PAMOATE 25 MG CAPSULE (FP) PO PRN (22:17)
[2023-04-20] MEDS: BRIMONIDINE TARTRATE 0.2% OPHTHALMIC 5 ML BOTTLE OU SCH ×3 (06:26→21:13)
[2023-04-20] MEDS: NAPROXEN 500 MG TABLET PO SCH ×2 (10:02→21:14)
[2023-04-20] MEDS: TAMSULOSIN HCL 0.4 MG CAP PO SCH (10:03)
[2023-04-20] MEDS: DIVALPROEX SODIUM 500 MG TABLET E.C. PO SCH ×2 (10:03→21:14)
[2023-04-20] MEDS: PRENATAL VITAMINS W/ FOLIC ACID TABLET (FP) PO SCH (10:03)
[2023-04-20] MEDS: PANTOPRAZOLE 20 MG TABLET PO SCH (10:03)
[2023-04-20] MEDS: LIDOCAINE 4% PATCH TP SCH (10:04)
[2023-04-20] MEDS: ARTIFICIAL TEARS OPHTHALMIC DROPS OU PRN (10:05)
[2023-04-20] MEDS: SODIUM CHLORIDE NASAL SPRAY 44 ML BOTTLE NS PRN ×2 (10:08→21:16)
[2023-04-20] MEDS: ACETAMINOPHEN 325 MG TABLET (FP) PO PRN (15:55)
[2023-04-20] MEDS: LATANOPROST 0.005% OPHTH SOLN 2.5ML BOTTLE OU SCH (21:13)
[2023-04-20] MEDS: THIAMINE HCL 100 MG TABLET (FP) PO SCH (21:13)
[2023-04-20] MEDS: MELATONIN 5 MG TABLETS PO SCH (21:13)
[2023-04-20] MEDS: OLANZapine 10 MG TABLET PO SCH (21:14)
[2023-04-20] MEDS: DOCUSATE SODIUM 100 MG CAPSULE (FP) PO PRN (21:14)
[2023-04-21] MEDS: BRIMONIDINE TARTRATE 0.2% OPHTHALMIC 5 ML BOTTLE OU SCH ×3 (06:40→21:40)
[2023-04-21] MEDS: NAPROXEN 500 MG TABLET PO SCH ×2 (09:48→21:37)
[2023-04-21] MEDS: DIVALPROEX SODIUM 500 MG TABLET E.C. PO SCH ×2 (09:48→21:38)
[2023-04-21] MEDS: LIDOCAINE 4% PATCH TP SCH (09:48)
[2023-04-21] MEDS: TAMSULOSIN HCL 0.4 MG CAP PO SCH (09:48)
[2023-04-21] MEDS: PANTOPRAZOLE 20 MG TABLET PO SCH (09:48)
[2023-04-21] MEDS: PRENATAL VITAMINS W/ FOLIC ACID TABLET (FP) PO SCH (09:48)
[2023-04-21] MEDS: SODIUM CHLORIDE NASAL SPRAY 44 ML BOTTLE NS PRN ×2 (09:50→21:40)
[2023-04-21] MEDS: ARTIFICIAL TEARS OPHTHALMIC DROPS OU PRN (09:50)
[2023-04-21] MEDS: THIAMINE HCL 100 MG TABLET (FP) PO SCH (21:38)
[2023-04-21] MEDS: MELATONIN 5 MG TABLETS PO SCH (21:38)
[2023-04-21] MEDS: hydrOXYzine PAMOATE 25 MG CAPSULE (FP) PO PRN (21:38)
[2023-04-21] MEDS: OLANZapine 10 MG TABLET PO SCH (21:38)
[2023-04-21] MEDS: LATANOPROST 0.005% OPHTH SOLN 2.5ML BOTTLE OU SCH (21:41)
[2023-04-22] MEDS: BRIMONIDINE TARTRATE 0.2% OPHTHALMIC 5 ML BOTTLE OU SCH ×3 (06:18→21:28)
[2023-04-22] MEDS: ACETAMINOPHEN 325 MG TABLET (FP) PO PRN ×2 (06:19→16:57)
[2023-04-22] MEDS: DIVALPROEX SODIUM 500 MG TABLET E.C. PO SCH ×2 (09:27→21:28)
[2023-04-22] MEDS: TAMSULOSIN HCL 0.4 MG CAP PO SCH (09:27)
[2023-04-22] MEDS: PRENATAL VITAMINS W/ FOLIC ACID TABLET (FP) PO SCH (09:27)
[2023-04-22] MEDS: NAPROXEN 500 MG TABLET PO SCH ×2 (09:27→21:28)
[2023-04-22] MEDS: PANTOPRAZOLE 20 MG TABLET PO SCH (09:27)
[2023-04-22] MEDS: LIDOCAINE 4% PATCH TP SCH (09:27)
[2023-04-22] MEDS: ARTIFICIAL TEARS OPHTHALMIC DROPS OU PRN ×2 (09:28→21:32)
[2023-04-22] MEDS: SODIUM CHLORIDE NASAL SPRAY 44 ML BOTTLE NS PRN (09:29)
[2023-04-22] MEDS: OLANZapine 10 MG TABLET PO SCH (21:28)
[2023-04-22] MEDS: THIAMINE HCL 100 MG TABLET (FP) PO SCH (21:28)
[2023-04-22] MEDS: MELATONIN 5 MG TABLETS PO SCH (21:29)
[2023-04-22] MEDS: hydrOXYzine PAMOATE 25 MG CAPSULE (FP) PO PRN (21:29)
[2023-04-22] MEDS: LATANOPROST 0.005% OPHTH SOLN 2.5ML BOTTLE OU SCH (21:30)
[2023-04-23] MEDS: BRIMONIDINE TARTRATE 0.2% OPHTHALMIC 5 ML BOTTLE OU SCH ×3 (06:48→21:48)
[2023-04-23] MEDS: DIVALPROEX SODIUM 500 MG TABLET E.C. PO SCH ×2 (09:34→21:39)
[2023-04-23] MEDS: LIDOCAINE 4% PATCH TP SCH (09:34)
[2023-04-23] MEDS: NAPROXEN 500 MG TABLET PO SCH ×2 (09:34→21:39)
[2023-04-23] MEDS: PANTOPRAZOLE 20 MG TABLET PO SCH (09:34)
[2023-04-23] MEDS: TAMSULOSIN HCL 0.4 MG CAP PO SCH (09:34)
[2023-04-23] MEDS: PRENATAL VITAMINS W/ FOLIC ACID TABLET (FP) PO SCH (09:34)
[2023-04-23] MEDS: SODIUM CHLORIDE NASAL SPRAY 44 ML BOTTLE NS PRN ×2 (09:37→21:39)
[2023-04-23] MEDS: OLANZapine 10 MG TABLET PO SCH (21:39)
[2023-04-23] MEDS: THIAMINE HCL 100 MG TABLET (FP) PO SCH (21:39)
[2023-04-23] MEDS: MELATONIN 5 MG TABLETS PO SCH (21:39)
[2023-04-23] MEDS: ARTIFICIAL TEARS OPHTHALMIC DROPS OU PRN (21:39)
[2023-04-23] MEDS: hydrOXYzine PAMOATE 25 MG CAPSULE (FP) PO PRN (21:39)
[2023-04-23] MEDS: LATANOPROST 0.005% OPHTH SOLN 2.5ML BOTTLE OU SCH (22:10)
[2023-04-24] MEDS: BRIMONIDINE TARTRATE 0.2% OPHTHALMIC 5 ML BOTTLE OU SCH ×3 (07:00→21:25)
[2023-04-24] MEDS: LIDOCAINE 4% PATCH TP SCH (09:33)
[2023-04-24] MEDS: DIVALPROEX SODIUM 500 MG TABLET E.C. PO SCH ×2 (09:33→21:08)
[2023-04-24] MEDS: TAMSULOSIN HCL 0.4 MG CAP PO SCH (09:33)
[2023-04-24] MEDS: NAPROXEN 500 MG TABLET PO SCH ×2 (09:33→21:08)
[2023-04-24] MEDS: PANTOPRAZOLE 20 MG TABLET PO SCH (09:34)
[2023-04-24] MEDS: PRENATAL VITAMINS W/ FOLIC ACID TABLET (FP) PO SCH (09:34)
[2023-04-24] MEDS: ARTIFICIAL TEARS OPHTHALMIC DROPS OU PRN (21:08)
[2023-04-24] MEDS: MELATONIN 5 MG TABLETS PO SCH (21:08)
[2023-04-24] MEDS: hydrOXYzine PAMOATE 25 MG CAPSULE (FP) PO PRN (21:08)
[2023-04-24] MEDS: THIAMINE HCL 100 MG TABLET (FP) PO SCH (21:08)
[2023-04-24] MEDS: OLANZapine 10 MG TABLET PO SCH (21:09)
[2023-04-24] MEDS: LATANOPROST 0.005% OPHTH SOLN 2.5ML BOTTLE OU SCH (21:37)
[2023-04-25] MEDS: BRIMONIDINE TARTRATE 0.2% OPHTHALMIC 5 ML BOTTLE OU SCH ×3 (06:23→21:07)
[2023-04-25] MEDS: ACETAMINOPHEN 325 MG TABLET (FP) PO PRN (06:36)
[2023-04-25] MEDS: NAPROXEN 500 MG TABLET PO SCH ×2 (10:01→21:05)
[2023-04-25] MEDS: PRENATAL VITAMINS W/ FOLIC ACID TABLET (FP) PO SCH (10:01)
[2023-04-25] MEDS: TAMSULOSIN HCL 0.4 MG CAP PO SCH (10:01)
[2023-04-25] MEDS: PANTOPRAZOLE 20 MG TABLET PO SCH (10:01)
[2023-04-25] MEDS: DIVALPROEX SODIUM 500 MG TABLET E.C. PO SCH ×2 (10:01→21:05)
[2023-04-25] MEDS: LIDOCAINE 4% PATCH TP SCH (10:02)
[2023-04-25] MEDS: THIAMINE HCL 100 MG TABLET (FP) PO SCH (21:05)
[2023-04-25] MEDS: MELATONIN 5 MG TABLETS PO SCH (21:05)
[2023-04-25] MEDS: OLANZapine 10 MG TABLET PO SCH (21:05)
[2023-04-25] MEDS: METHOCARBAMOL 500 MG TABLET PO SCH (21:05)
[2023-04-25] MEDS: hydrOXYzine PAMOATE 25 MG CAPSULE (FP) PO PRN (21:06)
[2023-04-25] MEDS: TOLNAFTATE 1% CREAM 15 GM TUBE TP SCH (21:07)
[2023-04-25] MEDS: LATANOPROST 0.005% OPHTH SOLN 2.5ML BOTTLE OU SCH (21:08)
[2023-04-25] MEDS: METHYL SALICYLATE/MENTHOL OINT 30 GM TUBE TP SCH (21:36)
[2023-04-26] MEDS: BRIMONIDINE TARTRATE 0.2% OPHTHALMIC 5 ML BOTTLE OU SCH (06:25)
[2023-04-26] MEDS: SODIUM CHLORIDE NASAL SPRAY 44 ML BOTTLE NS PRN (06:25)
[2023-04-26] MEDS: ACETAMINOPHEN 325 MG TABLET (FP) PO PRN (06:26)
[2023-04-26] MEDS: PANTOPRAZOLE 20 MG TABLET PO SCH (09:49)
[2023-04-26] MEDS: METHOCARBAMOL 500 MG TABLET PO SCH (09:49)
[2023-04-26] MEDS: TAMSULOSIN HCL 0.4 MG CAP PO SCH (09:49)
[2023-04-26] MEDS: PRENATAL VITAMINS W/ FOLIC ACID TABLET (FP) PO SCH (09:49)
[2023-04-26] MEDS: NAPROXEN 500 MG TABLET PO SCH (09:49)
[2023-04-26] MEDS: DIVALPROEX SODIUM 500 MG TABLET E.C. PO SCH (09:49)
[2023-04-26] MEDS: LIDOCAINE 4% PATCH TP SCH (09:50)
[2023-04-26] MEDS: METHYL SALICYLATE/MENTHOL OINT 30 GM TUBE TP SCH (09:50)
[2023-04-26] MEDS: TOLNAFTATE 1% CREAM 15 GM TUBE TP SCH (09:52)
[2023-04-26 10:32] VITALS: BP 150/77; PULSE 76; RESP 18; TEMP 97.6
== END 2023-04-26 12:02 | disposition left against medical advice (07) | DRG 894 ==
LOC: YASAS 13:24 → Y3E 21:42
PROVIDERS: ADMIT Allergy & Immunology; ATTEND Psychiatry & Neurology Pain Medicine
PROC: HZ42ZZZ Group Counseling for Substance Abuse Treatment, Cognitive-Behavioral (ICD-10-PCS; principal; 2023-04-16)
DX: F10.20 Alcohol dependence, uncomplicated (principal); F14.20 Cocaine dependence, uncomplicated; F19.282 Other psychoactive substance dependence with psychoactive substance-induced sleep disorder; F16.10 Hallucinogen abuse, uncomplicated; F17.210 Nicotine dependence, cigarettes, uncomplicated; F39 Unspecified mood [affective] disorder; F19.24 Other psychoactive substance dependence with psychoactive substance-induced mood disorder; I15.0 Renovascular hypertension; E78.5 Hyperlipidemia, unspecified; H40.1130 Primary open-angle glaucoma, bilateral, stage unspecified; M62.838 Other muscle spasm; Z87.19 Personal history of other diseases of the digestive system; F91.8 Other conduct disorders; Z91.199 Patient's noncompliance with other medical treatment and regimen due to unspecified reason; Z62.810 Personal history of physical and sexual abuse in childhood; S19.9XXA Unspecified injury of neck, initial encounter; S49.91XA Unspecified injury of right shoulder and upper arm, initial encounter; W20.8XXA Other cause of strike by thrown, projected or falling object, initial encounter; Y92.239 Unspecified place in hospital as the place of occurrence of the external cause
CPT/HCPCS: 36415; 80053; 80164; 81003; 85027; 86780; 87389; 87635